=== PATIENT | female | born 1935 | race Caucasian/White ===

== ENCOUNTER 2020-01-30 12:30 | Outpatient (REF) | payer MEDICARE, SELFPAY ==
--- NOTE | 2020-01-30 12:33 | XR_ITS ---
EXAMINATION: SKULL, RIGHT HUMERUS AND FACIAL BONES CLINICAL INFORMATION: Headache. Pain right arm. COMPARISON: None TECHNIQUE: 3 views facial bones FINDINGS: FACIAL BONES: There is normal aeration of paranasal sinuses without mucoperiosteal thickening or air-fluid levels. The bony sinus france are intact. The bony orbits is normal. No acute fracture involving the maxillofacial bones. Visualized mastoid air cells are well-aerated. SKULL 4 VIEWS: Patient is completely edentulous. There is no visible acute fracture or bony abnormality. The diploic space is uniform throughout the skull. There is a soft tissue scalp lesion left parietal region measuring 2.4 cm wide question sebaceous cyst or other soft tissue tumors. RIGHT HUMERUS: There is no visible acute fracture, dislocation or subluxation seen. No bony abnormality. There is a soft tissue abrasion along the lateral mid humerus likely from fall. IMPRESSION: Unremarkable facial bones. Unremarkable skull exam except for soft tissue lesion along the left parietal scalp question sebaceous cyst or other soft tissue lesions. Unremarkable right humerus.
== END 2020-01-30 12:31 | disposition home or self-care (01) ==
LOC: HO.XRAY 12:30
PROVIDERS: PCP Internal Medicine; Visit Provider Internal Medicine
DX: R51.9 Headache, unspecified (principal); M79.601 Pain in right arm; S00.83XA Contusion of other part of head, initial encounter; X58.XXXA Exposure to other specified factors, initial encounter; Y93.9 Activity, unspecified; Y92.9 Unspecified place or not applicable; Y99.9 Unspecified external cause status
CPT/HCPCS: 70140; 70250; 73060

== ENCOUNTER 2020-02-01 11:47 | Emergency (ER) | payer MEDICARE, SELFPAY ==
--- NOTE | 2020-02-01 | XR_ITS ---
EXAMINATION: XR LUMBAR SPINE CLINICAL INFORMATION: Reason for Exam pain COMPARISON: None TECHNIQUE: Frontal lateral and coned-down L5-S1 frontal lateral FINDINGS: Exam limited by soft tissue overlap. Partial compression fracture of L3 and L4, indeterminant age, each vertebral lost approximately one third of its height. Narrowing of intervertebral disc spaces suggest underlying degenerative disc disease. Paravertebral soft tissues are unremarkable. There are radiolucencies, most likely superimposed bowel gas.. No radiographic evidence of osteolytic or osteoblastic lesions. IMPRESSION: Limited exam, soft tissue overlap. Partial compression fracture of L3 and L4, each vertebral lost approximately one third of its height. Indeterminant age. Narrowing of intervertebral disc spaces suggest underlying degenerative disc disease.
--- NOTE | 2020-02-01 | XR_ITS ---
EXAMINATION: XR CHEST CLINICAL INFORMATION: Pleuritic pain. COMPARISON: Chest 12/07/2019. TECHNIQUE: AP and lateral views of the chest are obtained. FINDINGS: The heart is within normal limits in size. There is no congestion or focal consolidation. Hypertrophic degenerative changes of the spine are again noted. IMPRESSION: No acute cardiopulmonary process.
[2020-02-01 11:50] VITALS: BP 157/64; PULSE 90; RESP 16; TEMP 36.8; O2SAT 100; BMI 17.2
[2020-02-01 13:10] VITALS: BP 153/68; PULSE 86; RESP 16; O2SAT 95
--- NOTE | 2020-02-01 13:21 | ED.BACK ---
HPI - Back Pain/Injury General Chief Complaint: Back Pain/Injury <TAN Guerrero - Last Filed: 02/01/20 17:59> Stated Complaint: back pain <TAN Guerrero - Last Filed: 02/01/20 17:59> Time Seen by Provider: 02/01/20 13:08 <TAN Guerrero - Last Filed: 02/01/20 17:59> Source: patient and family <TAN Guerrero - Last Filed: 02/01/20 17:59> Mode of arrival: ambulatory <TAN Guerrero - Last Filed: 02/01/20 17:59> Limitations: language barrier <TAN Guerrero - Last Filed: 02/01/20 17:59> History of Present Illness HPI Narrative: 84 y/o female with history of COPD on 2L NC at baseline, hx SVT, HFpEF, fibromyalgia, OA, anemia presenting with low back pain & mid thoracic back pain on the right side after a fall about 5 days ago. She states pain is worse with inspiration. + cough, occasionally productive. She was evaluated by her PCP at the time of the fall. She has developed progressive weakness per patient and generally not feelin well. Denies fever, chills, N/V, abd pain, urinary symptoms. Family reports history of frequent falls; she ambulates with a walker at home. One of her sleep medications has been removed and she has been better per family. <TAN Guerrero - Last Filed: 02/01/20 17:59> MD elicited complaint: back pain and fall <TAN Guerrero - Last Filed: 02/01/20 17:59> Pertinent past history: recent trauma <TAN Guerrero Last Filed: 02/01/20 17:59> Onset (ago): day(s) (5) <TAN Guerrero - Last Filed: 02/01/20 17:59> Timing: intermittent <TAN Guerrero - Last Filed: 02/01/20 17:59> Severity: moderate <TAN Guerrero - Last Filed: 02/01/20 17:59> Similar Symptoms Previously: No <TAN Guerrero - Last Filed: 02/01/20 17:59> Quality: sharp <TAN Guerrero - Last Filed: 02/01/20 17:59> Location: lumbar spine, thoracic spine and right upper back <TAN Guerrero Last Filed: 02/01/20 17:59> Radiation: none <TAN Guerrero - Last Filed: 02/01/20 17:59> Exacerbating factors: movement and deep breaths <TAN Guerrero - Last Filed: 02/01/20 17:59> Relieving factors: immobilization <TAN Guerrero - Last Filed: 02/01/20 17:59> Context: fall <TAN Guerrero Last Filed: 02/01/20 17:59> Associated symptoms: weakness and fatigue <TAN Guerrero - Last Filed: 02/01/20 17:59> Work related injury: No <TAN Guerrero Last Filed: 02/01/20 17:59> Related Data Home Medications: Home Medications Medication Instructions Recorded Confirmed albuterol sulfate 90 mcg/actuation 2 puff INHALATION Q4-6H PRN 01/29/20 01/31/20 aerosol inhaler cyproheptadine 4 mg tablet 4 mg PO ONCE tab 01/29/20 01/31/20 diltiazem HCl 120 mg tablet 120 mg PO ONCE tab 01/29/20 01/31/20 fluticasone propionate 115 1 puff INHALATION BID g 01/29/20 01/31/20 mcg-salmeterol 21 mcg/actuation HFA inhaler food supplemt, lactose-reduced ea PO .2-3 times daily ml 01/29/20 01/31/20 lorazepam 0.5 mg tablet 0.5 mg PO BEDTIME PRN 01/29/20 01/31/20 nystatin 100,000 unit/mL oral 4 ml PO DAILY ml 01/29/20 01/31/20 suspension omeprazole 20 mg capsule,delayed 20 mg PO BID 01/29/20 01/31/20 release quetiapine 25 mg tablet 25 mg PO BEDTIME 01/29/20 01/31/20 tramadol 50 mg tablet 50 mg PO TID PRN 01/29/20 01/31/20 Previous Rx's Medication Instructions Recorded acetaminophen [Tylenol Arthritis 650 mg PO Q8H PRN #30 tab 02/01/20 Pain] lidocaine [Lidoderm] 1 patch TOPICAL DAILY #15 ea 02/01/20 <TAN Guerrero - Last Filed: 02/01/20 17:59> Allergies/Adverse Reactions: Allergies Allergy/AdvReac Type Severity Reaction Status Date / Time gabapentin [GABAPENTIN] Allergy Mild INCREASED Verified 01/29/20 13:06 BACK PAIN <TAN Guerrero - Last Filed: 02/01/20 17:59> Review of Systems Review of Systems: Constitutional: No Fever, No Chills ENT/Mouth: No sore throat, No Rhinorrhea, No Swallowing Difficulty Eyes: No Eye Pain, No Swelling, No Redness Cardiovascular: postitive intermittent Chest Pain, No SOB, No Orthopnea, No Edema Respiratory: positive Cough, positive Sputum, No Wheezing, No dyspnea Gastrointestinal: No Nausea, No Vomiting, No Diarrhea, No abdominal Pain, No Hematochezia, No Melena Genitourinary: No Dysuria, No Urinary Frequency, No Hematuria Musculoskeletal: No joint pain, No Myalgias, positive back pain Skin: No Skin Lesions, No rash, positive RUE skin tear Neuro: positive generalized Weakness, No Numbness, No Dizziness, No Headache Psych: No Anxiety/Panic, No Depression Heme/Lymph: positive Bruising, No Lymphadenopathy Endocrine: No Polyuria, No Polydipsia All other 10 point ROS are negative. <TAN Guerrero - Last Filed: 02/01/20 17:59> [facility] Past Medical History Attestation statement: The following information was validated with the patient. <TAN Guerrero - Last Filed: 02/01/20 17:59> Medical History: Medical History (HFpEF) heart failure with preserved ejection fraction Anemia Chronic respiratory failure COPD (chronic obstructive pulmonary disease) Dementia Fibromyalgia Multiple falls Osteoarthritis Pulmonary nodule SVT (supraventricular tachycardia) <TAN Guerrero - Last Filed: 02/01/20 17:59> Surgical History: Surgical History History of hysterectomy <TAN Guerrero - Last Filed: 02/01/20 17:59> Family History Family History: Family History Father Cancer Mother CVD (cardiovascular disease) <TAN Guerrero - Last Filed: 02/01/20 17:59> Social History Social History: Social History Alcohol intake: never Smoking Status: Never smoker Use of substances other than those prescribed or required for medical reasons: No Advance Directives: No Advance Directives Information Provided: No <TAN Guerrero - Last Filed: 02/01/20 17:59> Physical Exam Vital Signs and I&O and Narrative: Vital Signs and I&O: Vital Signs Temp 98.2 F 02/01/20 15:26 Pulse 81 02/01/20 15:26 Resp 18 02/01/20 15:26 BP 141/57 H 02/01/20 15:26 Pulse Ox 96 02/01/20 15:26 Intake & Output 01/31/20 02/01/20 02/01/20 18:59 06:59 18:59 Intake Total 1000 / 1000 Balance 1000 / 1000 Weight 39.916 kg Intake: Intake, IV Amoun t 1000 / 1000 0.9 % Sodium C hloride 1,000 ml 1000 / 1000 @ 999 mls/hr I VCONT .Q1H1M [facility] Rx#:[id number] Body Mass Index 17.2 Appearance: Alert. Oriented X3. No acute distress. Frail elderly female Eyes: Pupils equal, round and reactive to light. ENT: Pharynx normal. Neck: Normal inspection. Neck supple. CVS: Normal heart rate and rhythm. Pulses normal. Respiratory: No respiratory distress. Breath sounds coarse throughout Abdomen: Soft and with mild diffuse tenderness. +BS x4 Skin: Skin warm and dry. Normal skin color. Normal skin turgor. RUE skin tea on upper arm Extremities: No lower extremity edema. Neuro: Oriented X 3. generalized weakness, No sensory deficit. <TAN Guerrero - Last Filed: 02/01/20 17:59> Vital Signs and I&O: Vital Signs Temp 98.2 F 02/01/20 15:26 Pulse 81 02/01/20 15:26 Resp 18 02/01/20 15:26 BP 141/57 H 02/01/20 15:26 Pulse Ox 96 02/01/20 15:26 Intake & Output 01/31/20 02/01/20 02/01/20 18:59 06:59 18:59 Intake Total 1000 / 1000 Balance 1000 / 1000 Weight 39.916 kg Intake: Intake, IV Amoun t 1000 / 1000 0.9 % Sodium C hloride 1,000 ml 1000 / 1000 @ 999 mls/hr I VCONT .Q1H1M [facility] Rx#:[id number] Body Mass Index 17.2 <Ishan Vazquez DO - Last Filed: 02/01/20 18:35> Course Course Hospital Course: vital stable on arrival. reports upper right back pain, worse with inspriation, as well as low back pain. admits to generalized weakness after her fall about 5 days ago. XR's pending, hx PNA per family. EKG and troponin pending as well given reports of intermittent chest pain. may require PT evaluation given frequent falls at home. <TAN Guerrero - Last Filed: 02/01/20 17:59> Reevaluation(s) Reevaluation #1: CXR negative. XR lumbar spine shows partial comp fx of L3/L4 - indeterminate age. Will give tylenol and lidoderm right now. pt also asking for a neb. she is wanting to be discharged home, denying PT consult. This was d/w family member as well. they would like to defer for now and f/u with PCP. they have VNA services at home and feel comfortable taking her home. <TAN Guerrero - Last Filed: 02/01/20 17:59> Time: 17:12 <TAN Guerrero - Last Filed: 02/01/20 17:59> Reevaluation #2: Continues to decline PT. Wishes to go home. She is stable for d/c home. <TAN Guerrero - Last Filed: 02/01/20 17:59> MDM - Back Pain/Injury Differential Diagnosis Differential diagnosis: Likely lumbar radiculopathy, sciatica, strain of lumbar region, pyelonephritis and thoracic back pain <TAN Guerrero - Last Filed: 02/01/20 17:59> Medical Records Attestation: I reviewed the patient's medical records. <TAN Guerrero - Last Filed: 02/01/20 17:59> Lab Data Attestation: I reviewed the patient's lab results. <TAN Guerrero - Last Filed: 02/01/20 17:59> Result diagrams: : 02/01/20 14:41 02/01/20 14:40 <TAN Guerrero - Last Filed: 02/01/20 17:59> Labs: Lab Results 02/01/20 02/01/20 02/01/20 Range/Units 14:40 14:41 14:41 WBC (4.8-10.8) X10*3/uL RBC (4.20-5.50) X10*6/uL Hgb (12.0-16.0) g/dl Hct (37-47) % MCV (80-98) fL MCH (27.0-33.0) pg MCHC (31.0-35.0) g/dl RDW (11.0-16.0) % Plt Count (160-400) X10*3/uL MPV (9.4-12.3) fL Immature Gran % (Auto) (0.0-0.4) % Neut % (Auto) (45-73) % Lymph % (Auto) (20-40) % [place] % (Auto) (2-11) % Eos % (Auto) (0-4) % Baso % (Auto) (0-2) % Neut # (Auto) (2.0-8.3) X10*3/uL Lymph # (Auto) (1.2-4.9) X10*3/uL [place] # (Auto) (0.1-1.2) X10*3/uL Eos # (Auto) (0.0-0.4) X10*3/uL Baso # (Auto) (0.0-0.2) X10*3/uL Abs Immat Gran (auto) (0.00-0.03) X10*3/uL Absolute Nucleated RBC (0.0-0.012) X10*3/uL Nucleated RBC % (auto) (0.0-0.2) /100WBC Smear Tech's Comments Sodium 140 (135-145) mmol/L Potassium 4.2 (3.3-5.1) mmol/l Chloride 103 (96-108) mmol/L Carbon Dioxide 27 (22-29) mmol/L Anion Gap 14 (12-20) BUN 13 (9-16) mg/dL Creatinine 0.73 (0.5-1.4) mg/dL Estim Creat Clear Calc 36.1 Estimated GFR > 60 Random Glucose 133 H (60-115) mg/dL Calcium 8.7 (8.4-10.2) mg/dL Total Bilirubin 0.3 (0.0-1.0) mg/dL Direct Bilirubin 0.2 (0.0-0.5) mg/dL AST 23 (5-31) U/L ALT 21 (0-31) U/L Alkaline Phosphatase 106 (39-117) U/L Troponin I High Sens 4.9 (<3.5-17.0) ng/L B-Natriuretic Peptide 53 (<100) pg/mL Total Protein 6.2 L (6.5-8.0) g/dL Albumin 3.6 (3.5-5.0) g/dL 02/01/20 Range/Units 14:41 WBC 5.0 (4.8-10.8) X10*3/uL RBC 2.82 L (4.20-5.50) X10*6/uL Hgb 9.2 L (12.0-16.0) g/dl Hct 29.5 L (37-47) % MCV 104.6 H (80-98) fL MCH 32.6 (27.0-33.0) pg MCHC 31.2 (31.0-35.0) g/dl RDW 15.1 (11.0-16.0) % Plt Count 154 L (160-400) X10*3/uL MPV 9.7 (9.4-12.3) fL Immature Gran % (Auto) 2.0 H (0.0-0.4) % Neut % (Auto) 46.2 (45-73) % Lymph % (Auto) 24.3 (20-40) % [place] % (Auto) 27.1 H (2-11) % Eos % (Auto) 0.2 (0-4) % Baso % (Auto) 0.2 (0-2) % Neut # (Auto) 2.3 (2.0-8.3) X10*3/uL Lymph # (Auto) 1.2 (1.2-4.9) X10*3/uL [place] # (Auto) 1.4 H (0.1-1.2) X10*3/uL Eos # (Auto) 0.0 (0.0-0.4) X10*3/uL Baso # (Auto) 0.0 (0.0-0.2) X10*3/uL Abs Immat Gran (auto) 0.10 H (0.00-0.03) X10*3/uL Absolute Nucleated RBC 0.000 (0.0-0.012) X10*3/uL Nucleated RBC % (auto) 0.0 (0.0-0.2) /100WBC Smear Tech's Comments VERIFIED Sodium (135-145) mmol/L Potassium (3.3-5.1) mmol/l Chloride (96-108) mmol/L Carbon Dioxide (22-29) mmol/L Anion Gap (12-20) BUN (9-16) mg/dL Creatinine (0.5-1.4) mg/dL Estim Creat Clear Calc Estimated GFR Random Glucose (60-115) mg/dL Calcium (8.4-10.2) mg/dL Total Bilirubin (0.0-1.0) mg/dL Direct Bilirubin (0.0-0.5) mg/dL AST (5-31) U/L ALT (0-31) U/L Alkaline Phosphatase (39-117) U/L Troponin I High Sens (<3.5-17.0) ng/L B-Natriuretic Peptide (<100) pg/mL Total Protein (6.5-8.0) g/dL Albumin (3.5-5.0) g/dL <TAN Guerrero - Last Filed: 02/01/20 17:59> Lab Results 02/01/20 02/01/20 02/01/20 Range/Units 14:40 14:41 14:41 WBC (4.8-10.8) X10*3/uL RBC (4.20-5.50) X10*6/uL Hgb (12.0-16.0) g/dl Hct (37-47) % MCV (80-98) fL MCH (27.0-33.0) pg MCHC (31.0-35.0) g/dl RDW (11.0-16.0) % Plt Count (160-400) X10*3/uL MPV (9.4-12.3) fL Immature Gran % (Auto) (0.0-0.4) % Neut % (Auto) (45-73) % Lymph % (Auto) (20-40) % [place] % (Auto) (2-11) % Eos % (Auto) (0-4) % Baso % (Auto) (0-2) % Neut # (Auto) (2.0-8.3) X10*3/uL Lymph # (Auto) (1.2-4.9) X10*3/uL [place] # (Auto) (0.1-1.2) X10*3/uL Eos # (Auto) (0.0-0.4) X10*3/uL Baso # (Auto) (0.0-0.2) X10*3/uL Abs Immat Gran (auto) (0.00-0.03) X10*3/uL Absolute Nucleated RBC (0.0-0.012) X10*3/uL Nucleated RBC % (auto) (0.0-0.2) /100WBC Smear Tech's Comments Sodium 140 (135-145) mmol/L Potassium 4.2 (3.3-5.1) mmol/l Chloride 103 (96-108) mmol/L Carbon Dioxide 27 (22-29) mmol/L Anion Gap 14 (12-20) BUN 13 (9-16) mg/dL Creatinine 0.73 (0.5-1.4) mg/dL Estim Creat Clear Calc 36.1 Estimated GFR > 60 Random Glucose 133 H (60-115) mg/dL Calcium 8.7 (8.4-10.2) mg/dL Total Bilirubin 0.3 (0.0-1.0) mg/dL Direct Bilirubin 0.2 (0.0-0.5) mg/dL AST 23 (5-31) U/L ALT 21 (0-31) U/L Alkaline Phosphatase 106 (39-117) U/L Troponin I High Sens 4.9 (<3.5-17.0) ng/L B-Natriuretic Peptide 53 (<100) pg/mL Total Protein 6.2 L (6.5-8.0) g/dL Albumin 3.6 (3.5-5.0) g/dL 02/01/20 Range/Units 14:41 WBC 5.0 (4.8-10.8) X10*3/uL RBC 2.82 L (4.20-5.50) X10*6/uL Hgb 9.2 L (12.0-16.0) g/dl Hct 29.5 L (37-47) % MCV 104.6 H (80-98) fL MCH 32.6 (27.0-33.0) pg MCHC 31.2 (31.0-35.0) g/dl RDW 15.1 (11.0-16.0) % Plt Count 154 L (160-400) X10*3/uL MPV 9.7 (9.4-12.3) fL Immature Gran % (Auto) 2.0 H (0.0-0.4) % Neut % (Auto) 46.2 (45-73) % Lymph % (Auto) 24.3 (20-40) % [place] % (Auto) 27.1 H (2-11) % Eos % (Auto) 0.2 (0-4) % Baso % (Auto) 0.2 (0-2) % Neut # (Auto) 2.3 (2.0-8.3) X10*3/uL Lymph # (Auto) 1.2 (1.2-4.9) X10*3/uL [place] # (Auto) 1.4 H (0.1-1.2) X10*3/uL Eos # (Auto) 0.0 (0.0-0.4) X10*3/uL Baso # (Auto) 0.0 (0.0-0.2) X10*3/uL Abs Immat Gran (auto) 0.10 H (0.00-0.03) X10*3/uL Absolute Nucleated RBC 0.000 (0.0-0.012) X10*3/uL Nucleated RBC % (auto) 0.0 (0.0-0.2) /100WBC Smear Tech's Comments VERIFIED Sodium (135-145) mmol/L Potassium (3.3-5.1) mmol/l Chloride (96-108) mmol/L Carbon Dioxide (22-29) mmol/L Anion Gap (12-20) BUN (9-16) mg/dL Creatinine (0.5-1.4) mg/dL Estim Creat Clear Calc Estimated GFR Random Glucose (60-115) mg/dL Calcium (8.4-10.2) mg/dL Total Bilirubin (0.0-1.0) mg/dL Direct Bilirubin (0.0-0.5) mg/dL AST (5-31) U/L ALT (0-31) U/L Alkaline Phosphatase (39-117) U/L Troponin I High Sens (<3.5-17.0) ng/L B-Natriuretic Peptide (<100) pg/mL Total Protein (6.5-8.0) g/dL Albumin (3.5-5.0) g/dL <Ishan Vazquez DO - Last Filed: 02/01/20 18:35> Imaging Data Lumbar x-ray : Radiologist's impression: Partial compression fracture of L3 and L4, each vertebral lost approximately one third of its height. Indeterminant age. <TAN Guerrero - Last Filed: 02/01/20 17:59> Discharge Plan Discharge Clinical Impression: Multiple falls Compression fracture of L3 vertebra Qualifiers: Encounter type: initial encounter Qualified Code(s): S32.030A - Wedge compression fracture of third lumbar vertebra, initial encounter for closed fracture Compression fracture of L4 vertebra Qualifiers: Encounter type: initial encounter Qualified Code(s): S32.040A - Wedge compression fracture of fourth lumbar vertebra, initial encounter for closed fracture <TAN Guerrero - Last Filed: 02/01/20 17:59> Patient Disposition: Home, Self-Care <TAN Guerrero - Last Filed: 02/01/20 17:59> Instructions: Vertebral Compression Fracture (ED), Fall Prevention for Older Adults (ED) <TAN Guerrero - Last Filed: 02/01/20 17:59> Additional Instructions: It was recommended that you be evaluated by Physical Therapy team for possible placement to a short term rehab facility, however you refused. Follow up with your Primary Care Doctor this week. Come back to the ER if you develop shortness of breath or chest pain, numbness or tingling in your legs, or inability to walk. <TAN Guerrero - Last Filed: 02/01/20 17:59> Prescriptions: New lidocaine [Lidoderm] 5 % adhesive patch,medicated 1 patch topical DAILY Qty: 15 RF: 0 acetaminophen [Tylenol Arthritis Pain] 650 mg tablet extended release 650 mg PO Q8H PRN (Reason: pain) Qty: 30 RF: 0 Continued flu vacc [id number] 6mos up(PF) 60 mcg (15 mcg x 4)/0.5 mL syringe 0.5 ml IM ONCE Qty: 0.5 RF: 0 Flublok Quad [id number] (PF) 180 mcg (45 mcg x 4)/0.5 mL syringe 0.5 ml IM ONCE Qty: 0.5 RF: 0 quetiapine 25 mg tablet 25 mg PO BEDTIME RF: 0 Advair HFA 115-21 mcg/actuation HFA aerosol inhaler 1 puff inhalation BID RF: 0 Ensure Liquid PO .2-3 times daily RF: 0 cyproheptadine 4 mg tablet 4 mg PO ONCE RF: 0 lorazepam 0.5 mg tablet 0.5 mg PO BEDTIME PRNRF: 0 nystatin 100,000 unit/mL suspension 4 ml PO DAILY RF: 0 tramadol 50 mg tablet 50 mg PO TID PRNRF: 0 diltiazem HCl 120 mg tablet 120 mg PO ONCE RF: 0 albuterol sulfate [ProAir HFA] 90 mcg/actuation HFA aerosol inhaler 2 puff inhalation Q4-6H PRNRF: 0 omeprazole 20 mg capsule,delayed release(DR/EC) 20 mg PO BID RF: 0 <TAN Guerrero - Last Filed: 02/01/20 17:59> Interventions: ED Discharge Assessment Last Done: 02/01/20 17:32 <TAN Guerrero - Last Filed: 02/01/20 17:59> Discharge Date/Time: 02/01/20 18:18 <TAN Guerrero - Last Filed: 02/01/20 17:59> Print Language: Martiniquais <TAN Guerrero - Last Filed: 02/01/20 17:59>
[2020-02-01 14:47] LABS: Basophils Percent Auto 0.2 % (0-2); Eosinophils Percent Auto 0.2 % (0-4); Hematocrit 29.5 % (37-47); Hemoglobin 9.2 g/dl (12.0-16.0); Lymphocytes Absolute Auto 1.2 X10*3/uL (1.2-4.9); Lymphocytes Percent Auto 24.3 % (20-40); MANUAL DIFF FLAG SCAN; Mean Corpuscular HGB Conc 31.2 g/dl (31.0-35.0); Mean Corpuscular Hemoglobin 32.6 pg (27.0-33.0); Mean Corpuscular Volume 104.6 fL (80-98); Mean Platelet Volume 9.7 fL (9.4-12.3); Monocytes Absolute Auto 1.4 X10*3/uL (0.1-1.2); Monocytes Percent Auto 27.1 % (2-11); Neutrophils Absolute Auto 2.3 X10*3/uL (2.0-8.3); Neutrophils Percent Auto 46.2 % (45-73); Platelet Count 154 X10*3/uL (160-400); Red Blood Count 2.82 X10*6/uL (4.20-5.50); Red Cell Distribution Width 15.1 % (11.0-16.0); SCAN SMEAR FLAG 1
[2020-02-01] MEDS: 0.9 % Sodium Chloride 1,000 ML 999 ML IVCONT (14:48)
[2020-02-01 15:08] LABS: Anion Gap 14 (12-20); Blood Urea Nitrogen 13 mg/dL (9-16); Calcium 8.7 mg/dL (8.4-10.2); Carbon Dioxide 27 mmol/L (22-29); Chloride 103 mmol/L (96-108); Creatinine Clr Calc Pharmacy 36.1; Estimated Glomerular Filt Rate > 60; Glucose Random 133 mg/dL (60-115); Potassium 4.2 mmol/l (3.3-5.1); Sodium 140 mmol/L (135-145)
[2020-02-01 15:10] LABS: Alanine Aminotransferase 21 U/L (0-31); Albumin Level 3.6 g/dL (3.5-5.0); Alkaline Phosphatase 106 U/L (39-117); Aspartate Amino Transferase 23 U/L (5-31); Bilirubin Direct 0.2 mg/dL (0.0-0.5); Bilirubin Total 0.3 mg/dL (0.0-1.0); Total Protein 6.2 g/dL (6.5-8.0)
[2020-02-01 15:15] LABS: SLIDE REVIEW VERIFIED
[2020-02-01 15:16] LABS: B Type Natriuretic Peptide 53 pg/mL (<100); Troponin-I High Sensitivity 4.9 ng/L (<3.5-17.0)
[2020-02-01 15:26] VITALS: BP 141/57; PULSE 81; RESP 18; TEMP 36.8; O2SAT 96
[2020-02-01] MEDS: Albuterol/Iprat 2.5/0.5MG 3 ML AMPUL.NEB INHALE (16:49)
== END 2020-02-01 18:18 | disposition home or self-care (01) ==
PROVIDERS: Physician Assistant; Emergency Provider Emergency Medicine; PCP Internal Medicine
DX: S32.030A Wedge compression fracture of third lumbar vertebra, initial encounter for closed fracture (principal); S32.040A Wedge compression fracture of fourth lumbar vertebra, initial encounter for closed fracture; W19.XXXA Unspecified fall, initial encounter; I50.9 Heart failure, unspecified; Z91.81 History of falling; Y93.9 Activity, unspecified; Y92.9 Unspecified place or not applicable; Y99.9 Unspecified external cause status; Z79.899 Other long term (current) drug therapy
CPT/HCPCS: 36415; 71046; 72100; 80048; 80076; 83880; 84484; 85025; 96360; 99284

== ENCOUNTER 2020-02-05 04:44 | Outpatient (REF) | payer MEDICARE, SELFPAY | END 2020-02-05 04:45 | disposition home or self-care (01) | LOC: HO.LHD 04:44 | PROVIDERS: Visit Provider Internal Medicine | DX: D64.9 Anemia, unspecified (principal) ==

== ENCOUNTER 2020-02-06 01:28 | Outpatient (REF) | payer MEDICARE, SELFPAY ==
[2020-02-06 11:17] LABS: Hematocrit 29.5 % (37-47); Hemoglobin 9.3 g/dl (12.0-16.0); Mean Corpuscular HGB Conc 31.5 g/dl (31.0-35.0); Mean Corpuscular Hemoglobin 32.7 pg (27.0-33.0); Mean Corpuscular Volume 103.9 fL (80-98); Mean Platelet Volume 9.8 fL (9.4-12.3); Platelet Count 220 X10*3/uL (160-400); Red Blood Count 2.84 X10*6/uL (4.20-5.50); Red Cell Distribution Width 15.4 % (11.0-16.0); White Blood Count 6.7 X10*3/uL (4.8-10.8)
== END 2020-02-06 01:29 | disposition home or self-care (01) ==
LOC: HO.LHD 01:28
PROVIDERS: Visit Provider Internal Medicine
DX: D64.9 Anemia, unspecified (principal)
CPT/HCPCS: 36415; 85027

== ENCOUNTER 2020-03-05 16:09 | Emergency (ER) | payer MEDICARE, SELFPAY ==
[2020-03-05 16:51] VITALS: BP 130/83; BP 135/61; PULSE 78; PULSE 80; RESP 18; TEMP 36; O2SAT 98; O2SAT 99; BMI 17.3
--- NOTE | 2020-03-05 17:00 | XR_ITS ---
EXAMINATION: XR RIBS, LEFT CLINICAL INFORMATION: Fall. Pain. COMPARISON: CT chest 12/07/2019. Chest x-ray 12/07/2019 TECHNIQUE: Frontal view of chest 3 views of the left ribs were obtained. FINDINGS: There is hyperexpansion of lungs. There is no acute abnormality the chest. No focal consolidation. Small peripheral calcified granuloma left upper lobe. No pulmonary vascular congestion and no pleural effusion. There is no pneumothorax. Cardiac and mediastinal contours are unchanged. There are vascular calcifications of aorta. Multilevel degenerative spondylosis of the spine. There is no displaced left rib fracture. There is a mildly displaced transverse fracture of the midshaft of left clavicle. XR/XR ribs LT min 3V w CXR1V IMPRESSION: 1. Fracture midshaft left clavicle. 2. No displaced left rib fracture.
--- NOTE | 2020-03-05 17:00 | XR_ITS ---
EXAMINATION: XR SHOULDER, LEFT CLINICAL INFORMATION: Status post fall COMPARISON: None TECHNIQUE: AP external rotation, Grashey, and scapular Y views of the left shoulder. FINDINGS: There is a nondisplaced mid to distal left clavicular fracture with mild inferior angulation of the distal bone. The scapula and humerus are intact. There is narrowing of the acromio clavicular and glenohumeral joint spaces with associated hypertrophic changes. Chronic interstitial changes in the visualized portion of the lungs. There is a calcified granuloma in the left upper lobe. XR/XR shoulder LT min 2V IMPRESSION: Nondisplaced left midclavicular fracture with minimal inferior angulation of the distal bone.
--- NOTE | 2020-03-05 17:01 | ED_ITS ---
HPI - Fall General Chief Complaint: Fall Stated Complaint: R SHOULDER PAIN Time Seen by Provider: 03/05/20 16:42 Source: family Mode of arrival: EMS Limitations: other ( dementia) History of Present Illness HPI Narrative: patient dementia COPD home on home oxygen 2 L 24 hours was trying to get up from the bed to the commode without any help lost balance and fell on the left side complaining of pain in the left shoulder and left upper back no head injury no loss of consciousness patient's son-in-law was at home who help for patient was able to ambulate after the fall ,no seizure patient has similar history of falls in the past Related Data Home Medications Medication Instructions Recorded Confirmed albuterol sulfate 90 mcg/actuation 2 puff INHALATION Q4-6H PRN 01/29/20 01/31/20 aerosol inhaler cyproheptadine 4 mg tablet 4 mg PO ONCE tab 01/29/20 01/31/20 food supplemt, lactose-reduced ea PO .2-3 times daily ml 01/29/20 01/31/20 lorazepam 0.5 mg tablet 0.5 mg PO BEDTIME PRN 01/29/20 01/31/20 nystatin 100,000 unit/mL oral 4 ml PO DAILY ml 01/29/20 01/31/20 suspension omeprazole 20 mg capsule,delayed 20 mg PO BID 01/29/20 01/31/20 release quetiapine 25 mg tablet 25 mg PO BEDTIME 01/29/20 01/31/20 tramadol 50 mg tablet 50 mg PO TID PRN 01/29/20 01/31/20 Previous Rx's Medication Instructions Recorded acetaminophen [Tylenol Arthritis 650 mg PO Q8H PRN #30 tab 02/01/20 Pain] lidocaine [Lidoderm] 1 patch TOPICAL DAILY #15 ea 02/01/20 fluticasone propionate 115 1 puff INHALATION BID 30 Days #12 g 02/03/20 mcg-salmeterol 21 mcg/actuation HFA inhaler diltiazem HCl 120 mg 120 mg PO DAILY #30 cap 02/12/20 capsule,extended release 24 hr Allergies Allergy/AdvReac Type Severity Reaction Status Date / Time gabapentin [GABAPENTIN] Allergy Mild INCREASED Verified 01/29/20 13:06 BACK PAIN Review of Systems Review of Systems: REVIEW OF SYSTEMS: Pertinent positives and negatives are stated above in the history. GEN: no fevers, chills, fatigue HEENT: no nasal congestion, sore throat, ear pain NEURO: no headache, dizziness, focal weakness PULM: no cough, shortness of breath CV: no chest pain, palpitations, LE edema ABD: no abdominal pain, nausea, vomiting, diarrhea : no dysuria, urgency, frequency SKIN: no rash ROS otherwise negative x 10 PMFSH Past Medical History Medical History (HFpEF) heart failure with preserved ejection fraction Anemia Chronic respiratory failure COPD (chronic obstructive pulmonary disease) Dementia Fibromyalgia Multiple falls Osteoarthritis Pulmonary nodule SVT (supraventricular tachycardia) Surgical History History of hysterectomy Family History Family History Father Cancer Mother CVD (cardiovascular disease) Social History Social History Alcohol intake: never Smoking Status: Never smoker Advance Directives: No Advance Directives Information Provided: No Advance Directives Date on File: 09/11/08 Physical Exam Vital Signs: Vital Signs: Last Vital Signs Temp 96.8 F 03/05/20 16:51 Pulse 80 03/05/20 16:51 Resp 18 03/05/20 16:51 BP 135/61 03/05/20 16:51 Pulse Ox 98 03/05/20 16:51 Body Mass Index 17.3 Appearance: Alert. Oriented X2. No acute distress. Eyes: Pupils equal, round and reactive to light. ENT: Pharynx normal. Neck: Normal inspection. Neck supple. CVS: Normal heart rate and rhythm. Pulses normal. Respiratory: No respiratory distress. Breath sounds normal. tender left upper r ibs no skin change Abdomen: Soft and nontender. Skin: Skin warm and dry. Normal skin color. Normal skin turgor. Extremities: No lower extremity edema. Good range of movement of lower extremity. tenderness left upper end humerus and clavicle no deformity other joints are normal Neuro: Oriented X 2. No motor deficit. No sensory deficit. MDM - Fall MDM Narrative Medical decision making narrative: 84 years old elderly patient came after mechanical fall x-ray showed left clavicle fracture minimal displaced will give her a sling advised to follow-up with PCP Discharge Plan Discharge Clinical Impression: Clavicle fracture Qualifiers: Encounter type: initial encounter Clavicle location: shaft Fracture type: closed Fracture alignment: nondisplaced Laterality: left Qualified Code(s): S42.025A - Nondisplaced fracture of shaft of left clavicle, initial encounter for closed fracture Fall Qualifiers: Encounter type: initial encounter Qualified Code(s): W19.XXXA - Unspecified fall, initial encounter Patient Disposition: Home, Self-Care Instructions: Clavicle Fracture (ED), Fall Prevention for Older Adults (ED) Additional Instructions: care as advised , wear the sling for support continue pain medication tramadol Prescriptions: No Action fluticasone propion-salmeterol [Advair HFA] 115-21 mcg/actuation HFA aerosol inhaler 1 puff inhalation BID 30 Days Qty: 12 RF: 3 diltiazem HCl 120 mg capsule,extended release 24hr 120 mg PO DAILY Qty: 30 RF: 0 lidocaine [Lidoderm] 5 % adhesive patch,medicated 1 patch topical DAILY Qty: 15 RF: 0 acetaminophen [Tylenol Arthritis Pain] 650 mg tablet extended release 650 mg PO Q8H PRN (Reason: pain) Qty: 30 RF: 0 flu vacc [id number] 6mos up(PF) 60 mcg (15 mcg x 4)/0.5 mL syringe 0.5 ml IM ONCE Qty: 0.5 RF: 0 Flublok Quad [id number] (PF) 180 mcg (45 mcg x 4)/0.5 mL syringe 0.5 ml IM ONCE Qty: 0.5 RF: 0 quetiapine 25 mg tablet 25 mg PO BEDTIME RF: 0 Ensure Liquid PO .2-3 times daily RF: 0 cyproheptadine 4 mg tablet 4 mg PO ONCE RF: 0 lorazepam 0.5 mg tablet 0.5 mg PO BEDTIME PRNRF: 0 nystatin 100,000 unit/mL suspension 4 ml PO DAILY RF: 0 tramadol 50 mg tablet 50 mg PO TID PRNRF: 0 albuterol sulfate [ProAir HFA] 90 mcg/actuation HFA aerosol inhaler 2 puff inhalation Q4-6H PRNRF: 0 omeprazole 20 mg capsule,delayed release(DR/EC) 20 mg PO BID RF: 0
[2020-03-05] MEDS: oxyCODONE HCl Immed Release 5 MG TABLET PO (18:51)
== END 2020-03-05 19:27 | disposition home or self-care (01) ==
PROVIDERS: Emergency Provider Internal Medicine
DX: S42.025A Nondisplaced fracture of shaft of left clavicle, initial encounter for closed fracture (principal); M25.511 Pain in right shoulder; F03.90 Unspecified dementia, unspecified severity, without behavioral disturbance, psychotic disturbance, mood disturbance, and anxiety; W01.0XXA Fall on same level from slipping, tripping and stumbling without subsequent striking against object, initial encounter; Y93.01 Activity, walking, marching and hiking; Y92.009 Unspecified place in unspecified non-institutional (private) residence as the place of occurrence of the external cause; Z79.899 Other long term (current) drug therapy; Z99.81 Dependence on supplemental oxygen
CPT/HCPCS: 71101; 73030; 99283

== ENCOUNTER 2020-03-11 05:13 | Outpatient (REF) | payer MEDICARE, SELFPAY ==
[2020-03-11 10:12] LABS: Hematocrit 32.8 % (37-47); Hemoglobin 10.4 g/dl (12.0-16.0); Mean Corpuscular HGB Conc 31.7 g/dl (31.0-35.0); Mean Corpuscular Hemoglobin 33.5 pg (27.0-33.0); Mean Corpuscular Volume 105.8 fL (80-98); Mean Platelet Volume 9.5 fL (9.4-12.3); Platelet Count 298 X10*3/uL (160-400); White Blood Count 4.7 X10*3/uL (4.8-10.8)
== END 2020-03-11 05:14 | disposition home or self-care (01) ==
LOC: HO.LHD 05:13
PROVIDERS: Visit Provider Internal Medicine
DX: D64.9 Anemia, unspecified (principal)
CPT/HCPCS: 36415; 85027

== ENCOUNTER 2020-03-23 18:18 | Emergency (ER) | payer MEDICARE, SELFPAY ==
[2020-03-23] VITALS (7 sets, daily range): BP systolic 136–174; BP diastolic 41–87; PULSE 90–124; RESP 14–28; TEMP 36.5; O2SAT 3–97; BMI 16.1
--- NOTE | 2020-03-23 18:34 | ED_ITS ---
History of Present Illness General Chief Complaint: Epistaxis Stated Complaint: EPISTAXIS Time Seen by Provider: 03/23/20 18:33 Source: patient, family and EMS Mode of arrival: EMS Limitations: altered mental status (dementia) History of Present Illness HPI Narrative: daughter denies ASA or AC therapy Location: Yes right nares Onset/current episode: Yes hour(s) (started after 5pm but last night had bleedin g that resolved from R taylor) Duration: Yes constant Pertinent past history: Yes history of previous nose bleed Context: Yes history of previous nose bleed Treatment prior to arrival: Yes nose pinching and Yes head leaning forward Related Data Home Medications Medication Instructions Recorded Confirmed albuterol sulfate 90 mcg/actuation 2 puff INHALATION Q4-6H PRN 01/29/20 01/31/20 aerosol inhaler food supplemt, lactose-reduced ea PO .2-3 times daily ml 01/29/20 01/31/20 lorazepam 0.5 mg tablet 0.5 mg PO BEDTIME PRN 01/29/20 01/31/20 nystatin 100,000 unit/mL oral 4 ml PO DAILY ml 01/29/20 01/31/20 suspension omeprazole 20 mg capsule,delayed 20 mg PO BID 01/29/20 01/31/20 release quetiapine 25 mg tablet 25 mg PO BEDTIME 01/29/20 01/31/20 Previous Rx's Medication Instructions Recorded acetaminophen [Tylenol Arthritis 650 mg PO Q8H PRN #30 tab 02/01/20 Pain] lidocaine [Lidoderm] 1 patch TOPICAL DAILY #15 ea 02/01/20 fluticasone propionate 115 1 puff INHALATION BID 30 Days #12 g 02/03/20 mcg-salmeterol 21 mcg/actuation HFA inhaler diltiazem HCl 120 mg 120 mg PO DAILY #30 cap 03/12/20 capsule,extended release 24 hr tramadol 50 mg tablet 50 mg PO TID PRN 30 Days #90 tab 03/15/20 cyproheptadine 2 mg/5 mL oral syrup 2 mg PO BID #300 ml 03/17/20 Allergies Allergy/AdvReac Type Severity Reaction Status Date / Time gabapentin [GABAPENTIN] Allergy Mild INCREASED Verified 01/29/20 13:06 BACK PAIN Review of Systems Review of Systems: ROS unable to be obtained due to dementia and poor comprehension PMFSH Past Medical History Attestation statement: The following information was validated with the patient. Medical History (HFpEF) heart failure with preserved ejection fraction Anemia Chronic respiratory failure Closed left clavicular fracture COPD (chronic obstructive pulmonary disease) Dementia Fibromyalgia Multiple falls Osteoarthritis Pulmonary nodule SVT (supraventricular tachycardia) Surgical History History of hysterectomy Family History Family History Father Cancer Mother CVD (cardiovascular disease) Social History Social History Alcohol intake: never Smoking Status: Never smoker Advance Directives: Yes Advance Directives on File: Yes Advance Directives Date on File: 09/11/08 Physical Exam Vital Signs: Vital Signs: Last Vital Signs Temp 97.7 F 03/23/20 19:54 Pulse 115 H 03/24/20 00:00 Resp 18 03/24/20 00:00 BP 141/93 H 03/24/20 00:00 Pulse Ox 94 03/24/20 00:00 Body Mass Index 16.1 Appearance: Alert. Oriented X2. Anxious, mild acute distress. Eyes: Pupils equal, round and reactive to light. ENT: bleeding with clots noted in pharynx, brisk brb from R nares Neck: Normal inspection. Neck supple. CVS: Normal heart rate and rhythm. Pulses normal. Respiratory: No respiratory distress. Breath sounds normal. Abdomen: Soft and nontender. Skin: Skin warm and dry. Normal skin color. Normal skin turgor. Extremities: No lower extremity edema. No calf ttp Neuro: Oriented X 2. No motor deficit. No sensory deficit. Course Course Course Narrative: bleeding greatly improved, will give IV ativan for discomfort and allow her to sleep, plan is to DC in AM if she remains stable - hard for daughter to care for her overnight tonight, concern she may pull her packing for now bleeding has stopped bleeding has stopped, BP improving patient agitated cannot sleep c/o pain to family, repeat IV ativan and fentanyl for comfort ordered, patient trying to pull at her nasal packing given agitation will try olanzapine 2.5mg for rest, she is still trying to pull out her packing patient is very agitated from the packing and in pain, will not take PO medications family aware this could be detrimental but at this time given her agitation likely from pain will provide supportive care the patient is DNR/DNI repeat pain medications ordered, seems to be relaxed with dilaudid now, was rocking back and forth previously crying, given repeat xopenex as well patient finally asleep, will need case management for likely placement in AM Procedures Epistaxis Control Time Out Performed: Yes Nostril: Yes right Nose prepped with: Yes oxymetazoline and Yes other (tranexamic acid) Direct inspection: Yes unable to visualize Clots removed by: Yes suction Epistaxis treatment: Yes nasal tampon Results of treatment: Yes treatment well tolerated Complications: Yes none MDM - Epistaxis MDM Narrative Medical decision making narrative: 84 yo female without ASA or AC therapy - here with atraumatic R nares bleeding that is moderate in nature with bleeding in pharynx at this time applied nasal tong with afrin and tranexamic acid but the patient kept pulling at the tongs due to her dementia, given brisk bleeding applied 7.5cm packing with tranexamic acid and afrin - will obtain labs and likely observe until the AM Lab Data Result diagrams: 03/23/20 23:17 03/23/20 18:43 Labs: Lab Results 03/23/20 03/23/20 03/23/20 Range/Units 18:43 18:43 18:43 WBC 7.2 (4.8-10.8) X10*3/uL RBC 2.90 L (4.20-5.50) X10*6/uL Hgb 9.9 L (12.0-16.0) g/dl Hct 30.7 L (37-47) % MCV 105.9 H (80-98) fL MCH 34.1 H (27.0-33.0) pg MCHC 32.2 (31.0-35.0) g/dl RDW 12.8 (11.0-16.0) % Plt Count 162 D (160-400) X10*3/uL MPV 9.3 L (9.4-12.3) fL Immature Gran % (Auto) 0.4 (0.0-0.4) % Neut % (Auto) 38.3 L (45-73) % Lymph % (Auto) 33.5 (20-40) % [place] % (Auto) 27.5 H (2-11) % Eos % (Auto) 0.3 (0-4) % Baso % (Auto) 0.0 (0-2) % Lymph # (Auto) 2.4 (1.2-4.9) X10*3/uL [place] # (Auto) 2.0 H (0.1-1.2) X10*3/uL Eos # (Auto) 0.0 (0.0-0.4) X10*3/uL Baso # (Auto) 0.0 (0.0-0.2) X10*3/uL Abs Immat Gran (auto) 0.03 (0.00-0.03) X10*3/uL Absolute Neuts (auto) 2.8 (2.0-8.3) X10*3/uL Absolute Nucleated RBC 0.000 (0.0-0.012) X10*3/uL Nucleated RBC % (auto) 0.0 (0.0-0.2) /100WBC Smear Tech's Comments VERIFIED PT (10.8-13.0) SEC INR (0.9-1.1) APTT (24.1-38.0) SEC VBG pH (7.32-7.43) VBG pCO2 mmhg VBG pO2 mmhg VBG HCO3 mmol/L VBG O2 Saturation % VBG Base Excess mmol/L Sodium 139 (135-145) mmol/L Potassium 4.8 (3.3-5.1) mmol/l Chloride 102 (96-108) mmol/L Carbon Dioxide 27 (22-29) mmol/L Anion Gap 15 (12-20) BUN 22 H D (9-16) mg/dL Creatinine 0.71 (0.5-1.4) mg/dL Estim Creat Clear Calc 33.7 Estimated GFR > 60 Random Glucose 96 (60-115) mg/dL Calcium 9.1 (8.4-10.2) mg/dL Blood Type A Positive Antibody Screen NEGATIVE 03/23/20 03/23/20 03/23/20 Range/Units 18:44 23:17 23:21 WBC 12.0 H (4.8-10.8) X10*3/uL RBC 2.79 L (4.20-5.50) X10*6/uL Hgb 9.5 L (12.0-16.0) g/dl Hct 29.6 L (37-47) % MCV 106.1 H (80-98) fL MCH 34.1 H (27.0-33.0) pg MCHC 32.1 (31.0-35.0) g/dl RDW 12.8 (11.0-16.0) % Plt Count 194 (160-400) X10*3/uL MPV 9.5 (9.4-12.3) fL Immature Gran % (Auto) (0.0-0.4) % Neut % (Auto) (45-73) % Lymph % (Auto) (20-40) % [place] % (Auto) (2-11) % Eos % (Auto) (0-4) % Baso % (Auto) (0-2) % Lymph # (Auto) (1.2-4.9) X10*3/uL [place] # (Auto) (0.1-1.2) X10*3/uL Eos # (Auto) (0.0-0.4) X10*3/uL Baso # (Auto) (0.0-0.2) X10*3/uL Abs Immat Gran (auto) (0.00-0.03) X10*3/uL Absolute Neuts (auto) (2.0-8.3) X10*3/uL Absolute Nucleated RBC 0.000 (0.0-0.012) X10*3/uL Nucleated RBC % (auto) 0.0 (0.0-0.2) /100WBC Smear Tech's Comments PT 12.8 (10.8-13.0) SEC INR 1.1 (0.9-1.1) APTT 40.7 H (24.1-38.0) SEC VBG pH 7.38 (7.32-7.43) VBG pCO2 49 mmhg VBG pO2 66 mmhg VBG HCO3 28 mmol/L VBG O2 Saturation 92.4 % VBG Base Excess 2.5 mmol/L Sodium (135-145) mmol/L Potassium (3.3-5.1) mmol/l Chloride (96-108) mmol/L Carbon Dioxide (22-29) mmol/L Anion Gap (12-20) BUN (9-16) mg/dL Creatinine (0.5-1.4) mg/dL Estim Creat Clear Calc Estimated GFR Random Glucose (60-115) mg/dL Calcium (8.4-10.2) mg/dL Blood Type Antibody Screen Critical Care Time Critical Care Time Critical Care Time: Yes Total Critical Care Time: 35 Attestation: I attest to this time spent taking care of the patient Discharge Plan Discharge Clinical Impression: Epistaxis Prescriptions: No Action fluticasone propion-salmeterol [Advair HFA] 115-21 mcg/actuation HFA aerosol inhaler 1 puff inhalation BID 30 Days Qty: 12 RF: 3 diltiazem HCl 120 mg capsule,extended release 24hr 120 mg PO DAILY Qty: 30 RF: 0 tramadol 50 mg tablet 50 mg PO TID PRN (Reason: pain) 30 Days Qty: 90 RF: 0 cyproheptadine 2 mg/5 mL syrup 2 mg PO BID Qty: 300 RF: 2 lidocaine [Lidoderm] 5 % adhesive patch,medicated 1 patch topical DAILY Qty: 15 RF: 0 acetaminophen [Tylenol Arthritis Pain] 650 mg tablet extended release 650 mg PO Q8H PRN (Reason: pain) Qty: 30 RF: 0 flu vacc [id number] 6mos up(PF) 60 mcg (15 mcg x 4)/0.5 mL syringe 0.5 ml IM ONCE Qty: 0.5 RF: 0 Flublok Quad [id number] (PF) 180 mcg (45 mcg x 4)/0.5 mL syringe 0.5 ml IM ONCE Qty: 0.5 RF: 0 quetiapine 25 mg tablet 25 mg PO BEDTIME RF: 0 Ensure Liquid PO .2-3 times daily RF: 0 lorazepam 0.5 mg tablet 0.5 mg PO BEDTIME PRNRF: 0 nystatin 100,000 unit/mL suspension 4 ml PO DAILY RF: 0 albuterol sulfate [ProAir HFA] 90 mcg/actuation HFA aerosol inhaler 2 puff inhalation Q4-6H PRNRF: 0 omeprazole 20 mg capsule,delayed release(DR/EC) 20 mg PO BID RF: 0
[2020-03-23 18:52] LABS: Eosinophils Percent Auto 0.3 % (0-4); Hematocrit 30.7 % (37-47); Hemoglobin 9.9 g/dl (12.0-16.0); Imm Gran Abs Auto 0.03 X10*3/uL (0.00-0.03); Imm Gran Pct Auto 0.4 % (0.0-0.4); Lymphocytes Absolute Auto 2.4 X10*3/uL (1.2-4.9); Lymphocytes Percent Auto 33.5 % (20-40); MANUAL DIFF FLAG SCAN; Mean Corpuscular HGB Conc 32.2 g/dl (31.0-35.0); Mean Corpuscular Hemoglobin 34.1 pg (27.0-33.0); Mean Corpuscular Volume 105.9 fL (80-98); Mean Platelet Volume 9.3 fL (9.4-12.3); Monocytes Percent Auto 27.5 % (2-11); Neutrophils Absolute Auto 2.8 X10*3/uL (2.0-8.3); Neutrophils Percent Auto 38.3 % (45-73); Platelet Count 162 X10*3/uL (160-400); Red Cell Distribution Width 12.8 % (11.0-16.0); SCAN SMEAR FLAG 1; White Blood Count 7.2 X10*3/uL (4.8-10.8)
[2020-03-23] MEDS: Oxymetazoline HCl 0.05 % Nasal 15 ML SPRAY 2 SPRAY NOSTRIL-B (18:56)
[2020-03-23] MEDS: Tranexamic Acid 1,000 MG/10 ML VIAL 500 MG INTRANASAL ×2 (18:56→18:57)
[2020-03-23 18:57] LABS: INTERNATIONAL NORM RATIO 1.1 (0.9-1.1); Prothrombin Time 12.8 SEC (10.8-13.0)
[2020-03-23 18:59] LABS: Partial Thromboplastin Time 40.7 SEC (24.1-38.0)
--- NOTE | 2020-03-23 18:59 | PC.NURSE ---
PATIENT ARRIVED WITH NOSEBLEED 45 MINS PRIOR TO ARRIVAL. ACTIVELY BLEEDING. PROVIDER AT BEDSIDE. MEDICATION ADMINISTERED PER ORDER. PATIENTS DAUGHTER AT BEDSIDE. BLEEDING SLOWED DOWN. WILL CONTINUE TO MONITOR.
--- NOTE | 2020-03-23 19:13 | PC.NURSE ---
Report taken from kindra Brown RN resuming care. Per MD, plan for IV Ativan and to remain in the ED until morning for obs as family is uncomfortable bringing pt home at this time.
[2020-03-23 19:15] LABS: SLIDE REVIEW VERIFIED
[2020-03-23] MEDS: LORazepam 2 MG/ML VIAL 1 MG IVPUSH ×2 (19:20→21:53)
--- NOTE | 2020-03-23 19:25 | PC.NURSE ---
Pt medicated per EMAR with Ativan and ABX. Per MD, no BCX required.
[2020-03-23] MEDS: Albuterol Sulfate (0.083%) 2.5 MG/3 ML VIAL.NEB INHALE (20:43)
[2020-03-23 20:47] LABS: Anion Gap 15 (12-20); Blood Urea Nitrogen 22 mg/dL (9-16); Calcium 9.1 mg/dL (8.4-10.2); Carbon Dioxide 27 mmol/L (22-29); Chloride 102 mmol/L (96-108); Creatinine Clr Calc Pharmacy 33.7; Estimated Glomerular Filt Rate > 60; Glucose Random 96 mg/dL (60-115); Potassium 4.8 mmol/l (3.3-5.1); Sodium 139 mmol/L (135-145)
--- NOTE | 2020-03-23 21:29 | PC.NURSE ---
This RN at bedside, pt agitated and extremely uncomfortable at this time. Family at bedside explain that pt has been grabbing at everything, trying to pull nasal packing out. Plan to switch pt onto a hospital bed and move into room 8 for the night.
[2020-03-23] MEDS: Melatonin 3 MG TABLET 6 MG PO (21:52)
--- NOTE | 2020-03-23 22:00 | PC.NURSE ---
Pt medicated per EMAR, family at bedside. Pt restless and agitated, rocking in bed, O2 sat 88% on 4 lpm, pt is having difficulty keeping NC on due to nasal packing. MD at bedside, plan for IV Fentanyl.
[2020-03-23] MEDS: fentaNYL citrate/PF 100 MCG/2 ML VIAL 25 MCG IVPUSH (22:04)
--- NOTE | 2020-03-23 22:10 | PC.NURSE ---
Pt medicated per EMAR with Fentanyl. Pt resting in bed at this time with family at bedside.
--- NOTE | 2020-03-23 23:01 | PC.NURSE ---
Addendum entered by Samaria Keller 03/24/20 05:39: Pt refusing to take Olanzapine. Original Note: Pt remains agitated at this time, rocking herself back and forth in bed. Pt refusing to take Clonazepine. Pt remains tachycardic @ 130 bpm, pulling off NC, O2 sat 88%. NC taped to pts face, family remains at bedside. MD aware, continue to monitor.
[2020-03-23] MEDS: HYDROmorphone HCl 0.5 MG/0.5 ML SYRINGE IVPUSH (23:25)
[2020-03-23 23:27] LABS: Hematocrit 29.6 % (37-47); Hemoglobin 9.5 g/dl (12.0-16.0); Mean Corpuscular HGB Conc 32.1 g/dl (31.0-35.0); Mean Corpuscular Hemoglobin 34.1 pg (27.0-33.0); Mean Corpuscular Volume 106.1 fL (80-98); Mean Platelet Volume 9.5 fL (9.4-12.3); Platelet Count 194 X10*3/uL (160-400); Red Blood Count 2.79 X10*6/uL (4.20-5.50); Red Cell Distribution Width 12.8 % (11.0-16.0)
--- NOTE | 2020-03-23 23:32 | PC.NURSE ---
Pt medicated with Dilaudid. MD at bedside. Pt remains agitated, thrashing and rocking in bed. HR remains 128 bpm. Family at bedside.
[2020-03-23 23:38] LABS: Base Excess VBG 2.5 mmol/L; HCO3 VBG 28 mmol/L; Oxygen Saturation VBG 92.4 %; PCO2 VBG 49 mmhg; PO2 VBG 66 mmhg; pH VBG 7.38 (7.32-7.43)
[2020-03-23] MEDS: levalbuterol HCL 1.25 MG/3 ML VIAL.NEB INHALE (23:50)
[2020-03-24] VITALS (8 sets, daily range): BP systolic 128–141; BP diastolic 56–93; PULSE 107–118; RESP 18–22; TEMP 36.4; O2SAT 70–99
--- NOTE | 2020-03-24 00:16 | PC.NURSE ---
Pt sleeping in bed at this time.
--- NOTE | 2020-03-24 01:10 | PC.NURSE ---
Pt found sleeping in bed at this time, O2 sat applied, readying 70% with good pleth. Pt switched to a venti mask @ 10 lpm, O2 sat increasing to 95%. VSS. Continue to monitor.
--- NOTE | 2020-03-24 02:24 | PC.NURSE ---
RT at bedside assisting with Venturi mask as pt was satting @ 97% on a venti @ 45/10. Due to a history of COPD, this RN discussing decreasing O2. Pt switched to 35/6, satting @ 95%. Pt remains asleep in bed at this time.
--- NOTE | 2020-03-24 04:33 | PC.NURSE ---
Pt awake and agitated, thrashing in bed. Pt coughing constantly and tachypneic although O2 sat remains 96% on a venti mask. Lung sounds very diminished. RT called for treatment.
[2020-03-24] MEDS: Albuterol Sulfate (0.083%) 2.5 MG/3 ML VIAL.NEB 5 MG INHALE (04:38)
--- NOTE | 2020-03-24 04:45 | PC.NURSE ---
RT at bedside for treatment.
--- NOTE | 2020-03-24 04:53 | PC.NURSE ---
Due to difficulty maintaining pts O2 sat while on a NC and her worsening SOB/cough, this RN discussing the need for a CXR with MD due to possible aspiration, per MD, not necessary at this time and continue to monitor.
--- NOTE | 2020-03-24 05:24 | PC.NURSE ---
Pt sleeping comfortably in bed at this time, continue to monitor.
--- NOTE | 2020-03-24 06:49 | PC.NURSE ---
Daughter Rina requesting update on pt condition and plan of care [phone].
--- NOTE | 2020-03-24 06:56 | PC.NURSE ---
Daughter at bedside, per daughter, they wish to care for pt at home. Daughter states they have a plan to take shifts so she is not alone.
--- NOTE | 2020-03-24 07:08 | PC.NURSE ---
report taken from patrizia parker. pt resting with family at bedside. plan to wait for cm and dc home with family.
--- NOTE | 2020-03-24 08:01 | PC.NURSE ---
admin secretary aware of need for transport home.
--- NOTE | 2020-03-24 09:59 | MHC.CM.ED ---
Received case management consult overnight. However patient was discharged home with family prior to T/W arrival.
== END 2020-03-24 08:35 | disposition home or self-care (01) ==
PROVIDERS: Emergency Provider Emergency Medicine
DX: R04.0 Epistaxis (principal); Z79.899 Other long term (current) drug therapy
CPT/HCPCS: 30901; 36415; 80048; 82803; 85025; 85027; 85610; 85730; 86850; 86900; 86901; 94640; 96365; 96375; 96376; 99284; 99291; J0690; J1170; J2060; J3010

== ENCOUNTER 2020-04-08 | Outpatient (REF) | payer MEDICARE, SELFPAY ==
[2020-04-08 11:08] LABS: Hemoglobin 8.8 g/dl (12.0-16.0); Mean Corpuscular HGB Conc 31.4 g/dl (31.0-35.0); Mean Corpuscular Hemoglobin 33.8 pg (27.0-33.0); Mean Corpuscular Volume 107.7 fL (80-98); Mean Platelet Volume 9.9 fL (9.4-12.3); Platelet Count 318 X10*3/uL (160-400); Red Cell Distribution Width 12.4 % (11.0-16.0); White Blood Count 6.3 X10*3/uL (4.8-10.8)
== END 2020-04-08 00:01 | disposition home or self-care (01) ==
LOC: HO.LHD
PROVIDERS: Visit Provider Internal Medicine
DX: D64.9 Anemia, unspecified (principal)
CPT/HCPCS: 36415; 85027

== ENCOUNTER 2020-05-06 | Outpatient (REF) | payer MEDICARE, SELFPAY ==
[2020-05-06 10:44] LABS: Eosinophils Percent Auto 0.2 % (0-4); Hematocrit 28.5 % (37-47); Imm Gran Abs Auto 0.03 X10*3/uL (0.00-0.03); Imm Gran Pct Auto 0.6 % (0.0-0.4); Lymphocytes Absolute Auto 1.8 X10*3/uL (1.2-4.9); Lymphocytes Percent Auto 32.9 % (20-40); MANUAL DIFF FLAG NO; Mean Corpuscular HGB Conc 31.6 g/dl (31.0-35.0); Mean Corpuscular Hemoglobin 33.6 pg (27.0-33.0); Mean Corpuscular Volume 106.3 fL (80-98); Mean Platelet Volume 10.3 fL (9.4-12.3); Monocytes Absolute Auto 1.1 X10*3/uL (0.1-1.2); Neutrophils Absolute Auto 2.5 X10*3/uL (2.0-8.3); Neutrophils Percent Auto 46.3 % (45-73); Platelet Count 250 X10*3/uL (160-400); Red Blood Count 2.68 X10*6/uL (4.20-5.50); Red Cell Distribution Width 13.2 % (11.0-16.0); White Blood Count 5.4 X10*3/uL (4.8-10.8)
== END 2020-05-06 00:01 ==
LOC: HO.LHD
PROVIDERS: Visit Provider Internal Medicine
DX: D64.9 Anemia, unspecified (principal)
CPT/HCPCS: 36415; 85025

== ENCOUNTER 2020-06-03 13:51 | Outpatient (REF) | payer MEDICARE, SELFPAY ==
[2020-06-03 11:19] LABS: Hematocrit 27.8 % (37-47); Hemoglobin 8.9 g/dl (12.0-16.0); Mean Corpuscular Hemoglobin 33.2 pg (27.0-33.0); Mean Corpuscular Volume 103.7 fL (80-98); Platelet Count 235 X10*3/uL (160-400); Red Blood Count 2.68 X10*6/uL (4.20-5.50); Red Cell Distribution Width 13.8 % (11.0-16.0); White Blood Count 5.2 X10*3/uL (4.8-10.8)
== END 2020-06-03 13:52 | disposition home or self-care (01) ==
LOC: HO.LHD 13:51
PROVIDERS: Visit Provider Internal Medicine
DX: D64.9 Anemia, unspecified (principal)
CPT/HCPCS: 36415; 85027

== ENCOUNTER 2020-06-08 10:50 | Outpatient (REF) | payer MEDICARE, SELFPAY ==
--- NOTE | ~2020-06-08 | XR_ITS ---
EXAMINATION: XR FOOT, LEFT CLINICAL INFORMATION: Other specified soft tissue disorder COMPARISON: None TECHNIQUE: AP, lateral, and oblique views of the left foot. FINDINGS: Bone alignment is normal. No fracture or dislocation is seen. The bones are osteopenic. There is arthritis at the first MTP joint and metatarsal tarsal joints with joint space narrowing and osteophyte formation. There is a calcaneal spur at the Achilles tendon insertion. Soft tissues are otherwise unremarkable. XR/XR foot LT min 3V IMPRESSION: Osteopenia. Degenerative changes at the first MTP joints and metatarsal tarsal joints.
== END 2020-06-08 10:51 | disposition home or self-care (01) ==
LOC: HO.LAB 10:50
PROVIDERS: PCP Internal Medicine; Visit Provider Internal Medicine
DX: M79.89 Other specified soft tissue disorders (principal)
CPT/HCPCS: 73630

== ENCOUNTER 2020-07-01 00:22 | Outpatient (REF) | payer MEDICARE, SELFPAY ==
[2020-07-01 10:31] LABS: Hematocrit 28.5 % (37-47); Hemoglobin 8.7 g/dl (12.0-16.0); Mean Corpuscular HGB Conc 30.5 g/dl (31.0-35.0); Mean Corpuscular Hemoglobin 31.5 pg (27.0-33.0); Mean Corpuscular Volume 103.3 fL (80-98); Mean Platelet Volume 9.6 fL (9.4-12.3); Platelet Count 259 X10*3/uL (160-400); Red Blood Count 2.76 X10*6/uL (4.20-5.50); White Blood Count 5.4 X10*3/uL (4.8-10.8)
== END 2020-07-01 00:23 | disposition home or self-care (01) ==
LOC: HO.LHD 00:22
PROVIDERS: Visit Provider Internal Medicine
DX: D64.9 Anemia, unspecified (principal)
CPT/HCPCS: 36415; 85027

== ENCOUNTER 2020-07-29 07:14 | Outpatient (REF) | payer MEDICARE, SELFPAY ==
[2020-07-29 11:45] LABS: Hematocrit 30.7 % (37-47); Hemoglobin 9.4 g/dl (12.0-16.0); Mean Corpuscular HGB Conc 30.6 g/dl (31.0-35.0); Mean Corpuscular Hemoglobin 31.5 pg (27.0-33.0); Mean Platelet Volume 10.4 fL (9.4-12.3); Platelet Count 242 X10*3/uL (160-400); Red Blood Count 2.98 X10*6/uL (4.20-5.50); Red Cell Distribution Width 14.6 % (11.0-16.0); White Blood Count 6.6 X10*3/uL (4.8-10.8)
== END 2020-07-29 07:15 | disposition home or self-care (01) ==
LOC: HO.LHD 07:14
PROVIDERS: Visit Provider Internal Medicine
DX: D64.9 Anemia, unspecified (principal)
CPT/HCPCS: 36415; 85027

== ENCOUNTER 2020-09-02 01:08 | Outpatient (REF) | payer MEDICARE, SELFPAY ==
[2020-09-02 11:15] LABS: Hematocrit 28.6 % (37-47); Hemoglobin 8.7 g/dl (12.0-16.0); Mean Corpuscular HGB Conc 30.4 g/dl (31.0-35.0); Mean Corpuscular Hemoglobin 30.9 pg (27.0-33.0); Mean Corpuscular Volume 101.4 fL (80-98); Platelet Count 205 X10*3/uL (160-400); Red Blood Count 2.82 X10*6/uL (4.20-5.50); Red Cell Distribution Width 14.6 % (11.0-16.0)
== END 2020-09-02 01:09 | disposition home or self-care (01) ==
LOC: HO.LHD 01:08
PROVIDERS: Visit Provider Internal Medicine
DX: D64.9 Anemia, unspecified (principal)
CPT/HCPCS: 36415; 85027

== ENCOUNTER 2020-09-30 00:19 | Outpatient (REF) | payer MEDICARE, SELFPAY ==
[2020-09-30 11:27] LABS: Hematocrit 28.6 % (37-47); Mean Corpuscular HGB Conc 31.5 g/dl (31.0-35.0); Mean Corpuscular Hemoglobin 31.5 pg (27.0-33.0); Mean Platelet Volume 9.8 fL (9.4-12.3); Platelet Count 222 X10*3/uL (160-400); Red Blood Count 2.86 X10*6/uL (4.20-5.50); White Blood Count 6.7 X10*3/uL (4.8-10.8)
== END 2020-09-30 00:20 | disposition home or self-care (01) ==
LOC: HO.LHD 00:19
PROVIDERS: Visit Provider Internal Medicine
DX: D64.9 Anemia, unspecified (principal)
CPT/HCPCS: 36415; 85027

== ENCOUNTER 2020-10-28 00:48 | Outpatient (REF) | payer MEDICARE, SELFPAY ==
[2020-10-28 10:52] LABS: Hematocrit 30.7 % (37-47); Hemoglobin 9.5 g/dl (12.0-16.0); Mean Corpuscular HGB Conc 30.9 g/dl (31.0-35.0); Mean Corpuscular Hemoglobin 31.8 pg (27.0-33.0); Mean Corpuscular Volume 102.7 fL (80-98); Mean Platelet Volume 9.9 fL (9.4-12.3); Platelet Count 214 X10*3/uL (160-400); Red Blood Count 2.99 X10*6/uL (4.20-5.50); Red Cell Distribution Width 14.7 % (11.0-16.0); White Blood Count 5.7 X10*3/uL (4.8-10.8)
== END 2020-10-28 00:49 | disposition home or self-care (01) ==
LOC: HO.LHD 00:48
PROVIDERS: Visit Provider Internal Medicine
DX: D64.9 Anemia, unspecified (principal)
CPT/HCPCS: 36415; 85027

== ENCOUNTER 2020-11-02 12:32 | Emergency (ER) | payer MEDICARE, SELFPAY ==
--- NOTE | ~2020-11-02 | XR_ITS ---
EXAMINATION: XR CHEST CLINICAL INFORMATION: Shortness of breath COMPARISON: Prior radiographs most recent February 2020 CTA chest November 2019 Left shoulder x-ray February 2020 TECHNIQUE: Frontal view of the chest was obtained. FINDINGS: There is a nodule opacity in the right lower lobe possibly with spiculated margins. This measures approximately 2.6 cm transverse. This appears increased in size compared with prior imaging examinations. Otherwise is minimal generalized increased interstitial markings compatible with chronic change. Tiny nodular density in the left upper lobe dominant reflect a calcified granuloma on prior CT. Calcification of the dorsal aorta. Cardiac silhouette mediastinum pulmonary vascularity normal. There is a ununited left mid shaft clavicle fracture with increased displacement and bony overlap compared with the prior x-ray February 2020 approximately 2.5 cm of bony overlap of the 2 fragments noted. Suspect at least some osseous bridging across the fragments. Spondylosis of the dorsal spine unchanged. XR/XR chest 1V IMPRESSION: Nodular opacity in the right lower lobe likely reflects an enlarging lung nodule. With prior imaging examinations including chest x-ray February 2020 and CTA chest November 2019. LUNG NEOPLASM is the primary consideration and would need to be excluded. This critical result was discussed with Gely Marin at approximately 2:45 PM on November 02, 2020 and it was ascertained that the content and urgency of the report was understood at the time of direct communication.
--- NOTE | 2020-11-02 12:39 | ECG_ITS ---
Test Reason : DYSPNEA Blood Pressure : / mmHG Vent. Rate : 086 BPM Atrial Rate : 086 BPM P-R Int : 176 ms QRS Dur : 122 ms QT Int : 456 ms P-R-T Axes : 073 -72 089 degrees QTc Int : 545 ms Normal sinus rhythm Left axis deviation Right bundle branch block Left ventricular hypertrophy with repolarization abnormality Anterior infarct , age undetermined Abnormal ECG When compared with ECG of 07-DEC-2019 18:11, Right bundle branch block has replaced Incomplete left bundle branch block Anterior infarct is now Present Referred By: Gely Marin Electronically Signed By:ERVIN FUENTES
[2020-11-02 12:45] VITALS: BP 117/43; PULSE 91; RESP 20; TEMP 37; O2SAT 98; BMI 14.3
--- NOTE | 2020-11-02 12:46 | ED.SOB ---
HPI - SOB/Dyspnea General Chief Complaint: Dyspnea Stated Complaint: DIFF BREATHING,FEELS BETTER AFTER HOME NEB Time Seen by Provider: 11/02/20 12:38 Source: patient, EMS and manager storage Mode of arrival: EMS Limitations: no limitations History of Present Illness HPI Narrative: 85-year-old female history of COPD and former smoker, patient normally uses 2 L of oxygen at home, since yesterday patient began having shortness of breath, and patient overall feels weak, no chest pain but complaining of upper back pain. Patient also feels chills but no fever. No coughing. Patient took bronchodilator therapy at home feel some improvement. Related Data Home Medications Medication Instructions Recorded Confirmed albuterol sulfate 90 mcg/actuation 2 puff INHALATION Q4-6H PRN 01/29/20 10/18/20 aerosol inhaler food supplemt, lactose-reduced 1 ea PO .2-3 times daily ml 01/29/20 10/18/20 nystatin 100,000 unit/mL oral 4 ml PO DAILY ml 01/29/20 10/18/20 suspension omeprazole 20 mg capsule,delayed 20 mg PO BID 01/29/20 10/18/20 release Previous Rx's Medication Instructions Recorded acetaminophen [Tylenol Arthritis 650 mg PO Q8H PRN #30 tab 02/01/20 Pain] PRESSURE AIR MATTRESS #1 ea 04/27/20 fluticasone propionate 115 1 puff INHALATION BID 30 Days #12 g 08/13/20 mcg-salmeterol 21 mcg/actuation HFA inhaler cyproheptadine 2 mg/5 mL oral syrup 2 mg PO BID #300 ml 08/18/20 montelukast 10 mg tablet 10 mg PO DAILY #90 tab 08/18/20 diltiazem HCl 120 mg 120 mg PO DAILY #30 cap 08/31/20 capsule,extended release 24 hr meclizine 12.5 mg tablet 12.5 mg PO TID PRN #90 tab 10/11/20 sertraline 100 mg tablet 100 mg PO DAILY #90 tab 10/11/20 ipratropium 0.5 mg-albuterol 3 mg 3 ml INHALATION Q4-6H PRN #360 ml 10/21/20 (2.5 mg base)/3 mL nebulization soln tramadol 50 mg tablet 50 mg PO TID PRN 30 Days #90 tab 10/21/20 prednisone 20 mg PO BID #10 tab 11/02/20 Allergies Allergy/AdvReac Type Severity Reaction Status Date / Time gabapentin [GABAPENTIN] Allergy Mild INCREASED Verified 09/29/20 12:47 BACK PAIN Review of Systems Review of Systems: All other systems are reviewed and are negative Constitutional: Reports as per HPI and Reports no additional constitutional complaints Eyes: Reports as per HPI and Reports no additional eye complaints Reports system reviewed and no additional complaints, except as documented Cardiovascular: Reports as per HPI and Reports no additional cardiovascular complaints Respiratory: Reports as per HPI and Reports no additional respiratory complaints Gastrointestinal: Reports as per HPI and Reports no additional gastrointestinal complaints Genitourinary: Reports no additional female genitourinary complaints Musculoskeletal: Reports no additional musculoskeletal complaints Skin/Breast: Reports system reviewed and no additional complaints, except as docu Psychiatric: Reports no additional psychiatric complaints Endocrine: Reports no additional endocrine complaints Hematologic/Lymphatic: Reports no additional hematologic/lymphatic complaints Allergic/Immunologic: Reports no additional allergic/immunologic complaints Reports system reviewed and no additional complaints, except as documented and Reports Abnormal speech present [facility] Past Medical History Medical History (HFpEF) heart failure with preserved ejection fraction Anemia Chronic respiratory failure Closed left clavicular fracture COPD (chronic obstructive pulmonary disease) Dementia Depression Fibromyalgia Multiple falls Osteoarthritis Pulmonary nodule SVT (supraventricular tachycardia) Swelling of left foot Surgical History History of hysterectomy Family History Family History Father Cancer Mother CVD (cardiovascular disease) Social History Social History Alcohol intake: former Patient Tobacco Use Status: Former Tobacco user Tobacco use type: Cigarette Advance Directives: No Advance Directives Information Provided: No Advance Directives Date on File: 09/11/08 Physical Exam Vital Signs: Vital Signs: Last Vital Signs Temp 97.8 F 11/02/20 15:49 Pulse 102 H 11/02/20 15:49 Resp 17 11/02/20 15:49 BP 199/79 H 11/02/20 15:49 Pulse Ox 97 11/02/20 15:49 Oxygen Flow Rate 2 11/02/20 12:45 Body Mass Index 14.3 vital signs have been reviewed as appeared to be correct. Blood pressure normal. Heart rate normal. Respiration rate normal. Temperature normal. Oxygen saturation normal. Appearance: Alert. Oriented X3. No acute distress. Head: Normal external exam. Normocephalic. Atraumatic. No [place] signs noted. No raccoon eyes noted Eyes: PERRLA. EOMI. Conjunctiva and sclera normal. Eyelids normal. ENT: TM's Normal. Pharynx normal. Uvula midline. Moist mucous membranes. No trismus noted. No drooling noted. No muffled voice noted. Neck: Normal inspection. Neck supple. FROM. No adenopathy. Thyroid Normal. No meningeal signs. No neck mass noted. CVS: Normal heart rate and rhythm. Heart sound normal. No murmurs noted. Pulses normal throughout. Respiratory: No respiratory distress. Painless inspiration. Breath sounds normal. No wheezes/rales/rhonchi noted. Chest nontender. No accessory muscle usage noted or decreased air movement noted. Abdomen: Soft and nontender. Bowel sounds normal in all 4 quadrants. No distention noted. No organomegaly noted. No visible injury noted. Back: No CVA tenderness. Full range of motion noted. Skin: Skin warm and dry. Normal skin color. Normal skin turgor. No rashes/lesions/lacerations noted. Extremities: No lower extremity edema. Extremities exhibit normal range of motion. Extremities nontender. Neuro: Oriented X 3. No motor deficit. No sensory deficit. Reflexes normal. Course Course Course Narrative: assessment and plan. 85-year-old female with history of COPD, patient used 2 L of oxygen at home presented with 2 days of shortness of breath. Chest x-ray showed 2.5 cm of right lung mass highly suspicious for malignancy. The x-ray finding were discussed with the patient using manager storage service and also with her daughter who spoke Korean, patient was following with Dr. Gee from Oncology but patient/family decided not to treat the lung mass because the patient's age, patient/family opted to go home specially patient feels better now, will discharge the patient on prednisone. MDM - SOB/Dyspnea Lab Data Attestation: I reviewed the patient's lab results. Result diagrams: 11/02/20 14:25 11/02/20 14:25 Labs: Lab Results 11/02/20 11/02/20 11/02/20 Range/Units 14:25 14:25 14:25 WBC 4.8 (4.8-10.8) X10*3/uL RBC 3.21 L (4.20-5.50) X10*6/uL Hgb 10.2 L (12.0-16.0) g/dl Hct 32.5 L (37-47) % MCV 101.2 H (80-98) fL MCH 31.8 (27.0-33.0) pg MCHC 31.4 (31.0-35.0) g/dl RDW 14.5 (11.0-16.0) % Plt Count 216 (160-400) X10*3/uL MPV 9.9 (9.4-12.3) fL Immature Gran % (Auto) 0.4 (0.0-0.4) % Neut % (Auto) 47.8 (45-73) % Lymph % (Auto) 30.1 (20-40) % [place] % (Auto) 21.3 H (2-11) % Eos % (Auto) 0.4 (0-4) % Baso % (Auto) 0.0 (0-2) % Lymph # (Auto) 1.4 (1.2-4.9) X10*3/uL [place] # (Auto) 1.0 (0.1-1.2) X10*3/uL Eos # (Auto) 0.0 (0.0-0.4) X10*3/uL Baso # (Auto) 0.0 (0.0-0.2) X10*3/uL Abs Immat Gran (auto) 0.02 (0.00-0.03) X10*3/uL Absolute Neuts (auto) 2.3 (2.0-8.3) X10*3/uL Absolute Nucleated RBC 0.000 (0.0-0.012) X10*3/uL Nucleated RBC % (auto) 0.0 (0.0-0.2) /100WBC Smear Tech's Comments VERIFIED Sodium 141 (135-145) mmol/L Potassium 4.3 (3.3-5.1) mmol/L Chloride 104 (96-108) mmol/L Carbon Dioxide 26 (22-29) mmol/L Anion Gap 15 (12-20) BUN 14 (9-16) mg/dL Creatinine 0.77 (0.5-1.4) mg/dL Estim Creat Clear Calc 30.0 Estimated GFR > 60 Random Glucose 90 (60-115) mg/dL Lactic Acid (0.5-2.0) mmol/L Calcium 9.9 D (8.4-10.2) mg/dL Total Bilirubin 0.6 (0.0-1.0) mg/dL Direct Bilirubin 0.2 (0.0-0.5) mg/dL AST 20 (5-31) U/L ALT 11 (0-31) U/L Alkaline Phosphatase 111 (39-117) U/L Troponin I High Sens 7.7 (<3.5-17.0) ng/L B-Natriuretic Peptide 48 (<100) pg/mL Total Protein 7.3 (6.5-8.0) g/dL Albumin 4.0 (3.5-5.0) g/dL COVID-19 (JASPAL) (Negative) COVID-19 Clin Com 11/02/20 11/02/20 Range/Units 14:25 14:58 WBC (4.8-10.8) X10*3/uL RBC (4.20-5.50) X10*6/uL Hgb (12.0-16.0) g/dl Hct (37-47) % MCV (80-98) fL MCH (27.0-33.0) pg MCHC (31.0-35.0) g/dl RDW (11.0-16.0) % Plt Count (160-400) X10*3/uL MPV (9.4-12.3) fL Immature Gran % (Auto) (0.0-0.4) % Neut % (Auto) (45-73) % Lymph % (Auto) (20-40) % [place] % (Auto) (2-11) % Eos % (Auto) (0-4) % Baso % (Auto) (0-2) % Lymph # (Auto) (1.2-4.9) X10*3/uL [place] # (Auto) (0.1-1.2) X10*3/uL Eos # (Auto) (0.0-0.4) X10*3/uL Baso # (Auto) (0.0-0.2) X10*3/uL Abs Immat Gran (auto) (0.00-0.03) X10*3/uL Absolute Neuts (auto) (2.0-8.3) X10*3/uL Absolute Nucleated RBC (0.0-0.012) X10*3/uL Nucleated RBC % (auto) (0.0-0.2) /100WBC Smear Tech's Comments Sodium (135-145) mmol/L Potassium (3.3-5.1) mmol/L Chloride (96-108) mmol/L Carbon Dioxide (22-29) mmol/L Anion Gap (12-20) BUN (9-16) mg/dL Creatinine (0.5-1.4) mg/dL Estim Creat Clear Calc Estimated GFR Random Glucose (60-115) mg/dL Lactic Acid 0.7 (0.5-2.0) mmol/L Calcium (8.4-10.2) mg/dL Total Bilirubin (0.0-1.0) mg/dL Direct Bilirubin (0.0-0.5) mg/dL AST (5-31) U/L ALT (0-31) U/L Alkaline Phosphatase (39-117) U/L Troponin I High Sens (<3.5-17.0) ng/L B-Natriuretic Peptide (<100) pg/mL Total Protein (6.5-8.0) g/dL Albumin (3.5-5.0) g/dL COVID-19 ([facility]ASPAL) Negative (Negative) COVID-19 Clin Com See Note Imaging Data Chest x-ray: Radiologist's impression: Nodular opacity in the right lower lobe likely reflects an enlarging lung nodule. With prior imaging examinations including chest x-ray February 2020 and CTA chest November 2019. LUNG NEOPLASM is the primary consideration and would need to be excluded. This critical result was discussed with Gely Marin at approximately 2:45 PM on November 02, 2020 and it was ascertained that the content and urgency of the report was understood at the time of direct communication. Discharge Plan Discharge Clinical Impression: Lung mass COPD (chronic obstructive pulmonary disease) Qualifiers: COPD type: COPD with acute exacerbation Qualified Code(s): J44.1 - Chronic obstructive pulmonary disease with (acute) exacerbation Patient Disposition: Home, Self-Care Instructions: Lung Cancer (DC) Prescriptions: New prednisone 20 mg tablet 20 mg PO BID Qty: 10 RF: 0 No Action (DME) PRESSURE AIR MATTRESS See Rx Instructions .Route .MEDSUPPLY Qty: 1 RF: 0 Advair HFA 115-21 mcg/actuation HFA aerosol inhaler 1 puff inhalation BID 30 Days Qty: 12 RF: 3 montelukast 10 mg tablet 10 mg PO DAILY Qty: 90 RF: 1 cyproheptadine 2 mg/5 mL syrup 2 mg PO BID Qty: 300 RF: 2 diltiazem HCl 120 mg capsule,extended release 24hr 120 mg PO DAILY Qty: 30 RF: 5 sertraline 100 mg tablet 100 mg PO DAILY Qty: 90 RF: 1 meclizine 12.5 mg tablet 12.5 mg PO TID PRN (Reason: for dizziness) Qty: 90 RF: 0 tramadol 50 mg tablet 50 mg PO TID PRN (Reason: pain) 30 Days Qty: 90 RF: 0 ipratropium-albuterol 0.5 mg-3 mg(2.5 mg base)/3 mL solution for nebulization 3 ml inhalation Q4-6H PRN (Reason: shortness of breath) Qty: 360 RF: 3 acetaminophen [Tylenol Arthritis Pain] 650 mg tablet extended release 650 mg PO Q8H PRN (Reason: pain) Qty: 30 RF: 0 Ensure Liquid 1 ea PO .2-3 times daily RF: 0 nystatin 100,000 unit/mL suspension 4 ml PO DAILY RF: 0 albuterol sulfate [ProAir HFA] 90 mcg/actuation HFA aerosol inhaler 2 puff inhalation Q4-6H PRN (Reason: Wheezing) RF: 0 omeprazole 20 mg capsule,delayed release(DR/EC) 20 mg PO BID RF: 0 Referrals: Vj Hall MD [Primary Care Provider] - 2 days Connie Gee MD [Physician] - 2 days
[2020-11-02 14:34] LABS: Eosinophils Percent Auto 0.4 % (0-4); Hematocrit 32.5 % (37-47); Hemoglobin 10.2 g/dl (12.0-16.0); Imm Gran Abs Auto 0.02 X10*3/uL (0.00-0.03); Imm Gran Pct Auto 0.4 % (0.0-0.4); Lymphocytes Absolute Auto 1.4 X10*3/uL (1.2-4.9); Lymphocytes Percent Auto 30.1 % (20-40); MANUAL DIFF FLAG SCAN; Mean Corpuscular HGB Conc 31.4 g/dl (31.0-35.0); Mean Corpuscular Hemoglobin 31.8 pg (27.0-33.0); Mean Corpuscular Volume 101.2 fL (80-98); Mean Platelet Volume 9.9 fL (9.4-12.3); Monocytes Percent Auto 21.3 % (2-11); Neutrophils Absolute Auto 2.3 X10*3/uL (2.0-8.3); Neutrophils Percent Auto 47.8 % (45-73); Platelet Count 216 X10*3/uL (160-400); Red Blood Count 3.21 X10*6/uL (4.20-5.50); Red Cell Distribution Width 14.5 % (11.0-16.0); SCAN SMEAR FLAG 1; White Blood Count 4.8 X10*3/uL (4.8-10.8)
[2020-11-02 14:54] LABS: Lactic Acid 0.7 mmol/L (0.5-2.0)
[2020-11-02 14:59] LABS: Alanine Aminotransferase 11 U/L (0-31); Alkaline Phosphatase 111 U/L (39-117); Anion Gap 15 (12-20); Aspartate Amino Transferase 20 U/L (5-31); Bilirubin Direct 0.2 mg/dL (0.0-0.5); Bilirubin Total 0.6 mg/dL (0.0-1.0); Blood Urea Nitrogen 14 mg/dL (9-16); Calcium 9.9 mg/dL (8.4-10.2); Carbon Dioxide 26 mmol/L (22-29); Chloride 104 mmol/L (96-108); Estimated Glomerular Filt Rate > 60; Glucose Random 90 mg/dL (60-115); Potassium 4.3 mmol/L (3.3-5.1); Sodium 141 mmol/L (135-145); Total Protein 7.3 g/dL (6.5-8.0)
[2020-11-02 15:04] LABS: B Type Natriuretic Peptide 48 pg/mL (<100); Troponin-I High Sensitivity 7.7 ng/L (<3.5-17.0)
[2020-11-02 15:15] LABS: SLIDE REVIEW VERIFIED
[2020-11-02] MEDS: Albuterol Sulfate (0.083%) 2.5 MG/3 ML VIAL.NEB 5 MG INHALE (15:26)
[2020-11-02] MEDS: Albuterol/Iprat 2.5/0.5MG 3 ML AMPUL.NEB INHALE (15:26)
[2020-11-02 15:28] VITALS: PULSE 87; O2SAT 94
[2020-11-02 15:33] LABS: COVID-19 Test Negative (Negative); IDNOW Serial# 9DD0AD1C
[2020-11-02 15:49] VITALS: BP 199/79; PULSE 102; RESP 17; TEMP 36.6; O2SAT 97
--- NOTE | 2020-11-02 15:51 | PC.NURSE ---
[facility] AWARE OF PATIENT HIGH BLOOD PRESSURE .
[2020-11-02] MEDS: Magnesium Sulfate/H2O 2 GM/50 ML PIGGYBACK IV (15:56)
[2020-11-02] MEDS: methylPREDNISolone Sod Succ 125 MG/2 ML VIAL IVPUSH (15:57)
== END 2020-11-02 17:30 | disposition home or self-care (01) ==
PROVIDERS: Emergency Provider Emergency Medicine; PCP Internal Medicine
DX: R91.8 Other nonspecific abnormal finding of lung field (principal); J44.1 Chronic obstructive pulmonary disease with (acute) exacerbation; R06.02 Shortness of breath; Z99.81 Dependence on supplemental oxygen; Z87.891 Personal history of nicotine dependence; Z20.822 Contact with and (suspected) exposure to COVID-19
CPT/HCPCS: 36415; 71045; 80048; 80076; 83605; 83880; 84484; 85025; 87040; 87635; 93005; 94640; 94644; 96365; 96366; 96375; 99284; 99285; J2930; J3475

== ENCOUNTER 2020-12-02 07:17 | Outpatient (REF) | payer MEDICARE, SELFPAY ==
[2020-12-02 11:26] LABS: Basophils Percent Auto 0.2 % (0-2); Hematocrit 31.6 % (37-47); Hemoglobin 9.6 g/dl (12.0-16.0); Imm Gran Abs Auto 0.06 X10*3/uL (0.00-0.03); Imm Gran Pct Auto 0.9 % (0.0-0.4); Lymphocytes Absolute Auto 2.4 X10*3/uL (1.2-4.9); Lymphocytes Percent Auto 36.2 % (20-40); MANUAL DIFF FLAG SCAN; Mean Corpuscular HGB Conc 30.4 g/dl (31.0-35.0); Mean Corpuscular Hemoglobin 32.1 pg (27.0-33.0); Mean Corpuscular Volume 105.7 fL (80-98); Mean Platelet Volume 10.2 fL (9.4-12.3); Monocytes Absolute Auto 1.5 X10*3/uL (0.1-1.2); Monocytes Percent Auto 22.8 % (2-11); Neutrophils Absolute Auto 2.6 X10*3/uL (2.0-8.3); Neutrophils Percent Auto 39.9 % (45-73); Platelet Count 281 X10*3/uL (160-400); Red Blood Count 2.99 X10*6/uL (4.20-5.50); Red Cell Distribution Width 14.6 % (11.0-16.0); SCAN SMEAR FLAG 1; White Blood Count 6.5 X10*3/uL (4.8-10.8)
[2020-12-02 11:43] LABS: B Type Natriuretic Peptide 26 pg/mL (<100)
[2020-12-02 11:54] LABS: Alanine Aminotransferase 13 U/L (0-31); Albumin Level 3.5 g/dL (3.5-5.0); Alkaline Phosphatase 100 U/L (39-117); Anion Gap 12 (12-20); Aspartate Amino Transferase 19 U/L (5-31); Bilirubin Total 0.3 mg/dL (0.0-1.0); Blood Urea Nitrogen 15 mg/dL (9-16); Calcium 9.3 mg/dL (8.4-10.2); Carbon Dioxide 32 mmol/L (22-29); Chloride 102 mmol/L (96-108); Cholesterol 124 mg/dL; Estimated Glomerular Filt Rate > 60; Glucose Fasting 82 mg/dL (60-99); HDL Cholesterol 48 mg/dL; Iron 36 mcg/dL (30-160); LDL Cholesterol Calculated 61 mg/dl; Percent Iron Saturation 14 % (15-50); Potassium 4.5 mmol/L (3.3-5.1); Sodium 141 mmol/L (135-145); Total Iron Binding Capacity 254 mcg/dL (228-428); Total Protein 6.2 g/dL (6.5-8.0); Triglycerides 77 mg/dL; Unsaturated Iron Binding 218 ug/dL
[2020-12-02 11:58] LABS: TSH reflex Free T4 2.57 uIU/mL (0.32-4.0); Vitamin D 25-OH Total 78.1 ng/mL (>30)
[2020-12-02 12:00] LABS: SLIDE REVIEW VERIFIED
[2020-12-02 12:15] LABS: Erythrocyte Sedimentation Rate 98 MM/HR (0-20)
[2020-12-02 14:41] LABS: Glucose Urine UA NEG (NEG); Leukocyte Esterase Urine NEG (NEG); Nitrite Urine NEG (NEG); PH 6.5 (5.0-8.0); Specific Gravity - Urine <= 1.005 (1.005-1.025); Urine Blood NEG (NEG); Urine Ketones NEG (NEG); Urine Protein NEG (NEG-TRACE)
[2020-12-02 14:42] LABS: Appearance Urine CLEAR; Color Urine YELLOW
== END 2020-12-02 07:18 | disposition home or self-care (01) ==
LOC: HO.LHD 07:17
PROVIDERS: Internal Medicine; Visit Provider Internal Medicine
DX: Z00.00 Encounter for general adult medical examination without abnormal findings (principal); I11.0 Hypertensive heart disease with heart failure; I50.32 Chronic diastolic (congestive) heart failure; E78.00 Pure hypercholesterolemia, unspecified; J44.9 Chronic obstructive pulmonary disease, unspecified; M79.7 Fibromyalgia; E55.9 Vitamin D deficiency, unspecified; D64.9 Anemia, unspecified; R29.6 Repeated falls
CPT/HCPCS: 36415; 80053; 80061; 81003; 82306; 83540; 83880; 84443; 85025; 85652

== ENCOUNTER 2020-12-30 08:27 | Outpatient (REF) | payer MEDICARE, SELFPAY ==
[2020-12-30 10:45] LABS: Eosinophils Percent Auto 0.3 % (0-4); Hematocrit 32.5 % (37-47); Hemoglobin 10.2 g/dl (12.0-16.0); Imm Gran Abs Auto 0.04 X10*3/uL (0.00-0.03); Imm Gran Pct Auto 0.6 % (0.0-0.4); Lymphocytes Absolute Auto 2.8 X10*3/uL (1.2-4.9); Lymphocytes Percent Auto 40.4 % (20-40); MANUAL DIFF FLAG SCAN; Mean Corpuscular HGB Conc 31.4 g/dl (31.0-35.0); Mean Corpuscular Hemoglobin 31.9 pg (27.0-33.0); Mean Corpuscular Volume 101.6 fL (80-98); Monocytes Absolute Auto 1.7 X10*3/uL (0.1-1.2); Monocytes Percent Auto 25.2 % (2-11); Neutrophils Absolute Auto 2.3 X10*3/uL (2.0-8.3); Neutrophils Percent Auto 33.5 % (45-73); Platelet Count 263 X10*3/uL (160-400); Red Cell Distribution Width 13.6 % (11.0-16.0); SCAN SMEAR FLAG 1; White Blood Count 6.9 X10*3/uL (4.8-10.8)
[2020-12-30 11:13] LABS: SLIDE REVIEW VERIFIED
== END 2020-12-30 08:28 | disposition home or self-care (01) ==
LOC: HO.LHD 08:27
PROVIDERS: Visit Provider Internal Medicine
DX: D64.9 Anemia, unspecified (principal)
CPT/HCPCS: 36415; 85025

== ENCOUNTER 2021-02-03 11:44 | Outpatient (REF) | payer MEDICARE, SELFPAY ==
[2021-02-03 11:38] LABS: Basophils Percent Auto 0.2 % (0-2); Eosinophils Percent Auto 0.6 % (0-4); Hematocrit 32.3 % (37-47); Hemoglobin 10.1 g/dl (12.0-16.0); Imm Gran Abs Auto 0.04 X10*3/uL (0.00-0.03); Imm Gran Pct Auto 0.6 % (0.0-0.4); Lymphocytes Absolute Auto 1.9 X10*3/uL (1.2-4.9); Lymphocytes Percent Auto 29.9 % (20-40); MANUAL DIFF FLAG SCAN; Mean Corpuscular HGB Conc 31.3 g/dl (31.0-35.0); Mean Corpuscular Hemoglobin 32.2 pg (27.0-33.0); Mean Corpuscular Volume 102.9 fL (80-98); Mean Platelet Volume 10.9 fL (9.4-12.3); Monocytes Absolute Auto 1.7 X10*3/uL (0.1-1.2); Monocytes Percent Auto 26.7 % (2-11); Neutrophils Absolute Auto 2.6 X10*3/uL (2.0-8.3); Platelet Count 168 X10*3/uL (160-400); Red Blood Count 3.14 X10*6/uL (4.20-5.50); Red Cell Distribution Width 13.4 % (11.0-16.0); SCAN SMEAR FLAG 1; White Blood Count 6.3 X10*3/uL (4.8-10.8)
[2021-02-03 13:33] LABS: SLIDE REVIEW VERIFIED
== END 2021-02-03 11:45 | disposition home or self-care (01) ==
LOC: HO.LHD 11:44
PROVIDERS: Visit Provider Internal Medicine
DX: D64.9 Anemia, unspecified (principal)
CPT/HCPCS: 36415; 85025

== ENCOUNTER 2021-03-03 07:01 | Outpatient (REF) | payer MEDICARE, SELFPAY ==
[2021-03-03 09:33] LABS: Eosinophils Percent Auto 0.4 % (0-4); Hemoglobin 10.9 g/dl (12.0-16.0); Imm Gran Abs Auto 0.02 X10*3/uL (0.00-0.03); Imm Gran Pct Auto 0.4 % (0.0-0.4); Lymphocytes Absolute Auto 1.5 X10*3/uL (1.2-4.9); Lymphocytes Percent Auto 33.5 % (20-40); MANUAL DIFF FLAG SCAN; Mean Corpuscular HGB Conc 31.1 g/dl (31.0-35.0); Mean Corpuscular Hemoglobin 32.8 pg (27.0-33.0); Mean Corpuscular Volume 105.4 fL (80.0-98.0); Mean Platelet Volume 9.9 fL (9.4-12.3); Monocytes Absolute Auto 1.2 X10*3/uL (0.1-1.2); Monocytes Percent Auto 25.7 % (2-11); Neutrophils Absolute Auto 1.84 x10*3/uL (2.0-8.3); Platelet Count 216 X10*3/uL (160-400); Red Blood Count 3.32 X10*6/uL (4.20-5.50); Red Cell Distribution Width 13.2 % (11.0-16.0); SCAN SMEAR FLAG 1; White Blood Count 4.6 X10*3/uL (4.8-10.8)
[2021-03-03 10:04] LABS: SLIDE REVIEW VERIFIED
[2021-03-03 10:54] LABS: TSH reflex Free T4 1.94 uIU/mL (0.32-4.0)
[2021-03-03 14:37] LABS: Appearance Urine CLEAR; Color Urine YELLOW; Glucose Urine UA NEG (NEG); Leukocyte Esterase Urine NEG (NEG); Nitrite Urine NEG (NEG); Specific Gravity - Urine 1.015 (1.005-1.025); Urine Blood NEG (NEG); Urine Ketones NEG (NEG); Urine Protein NEG (NEG-TRACE)
== END 2021-03-03 07:02 | disposition home or self-care (01) ==
LOC: HO.LHD 07:01
PROVIDERS: Absent Provider Internal Medicine; Visit Provider Internal Medicine
DX: Z00.00 Encounter for general adult medical examination without abnormal findings (principal); D64.9 Anemia, unspecified; I11.0 Hypertensive heart disease with heart failure; I50.32 Chronic diastolic (congestive) heart failure; J44.9 Chronic obstructive pulmonary disease, unspecified; R29.6 Repeated falls; E78.00 Pure hypercholesterolemia, unspecified; F33.9 Major depressive disorder, recurrent, unspecified
CPT/HCPCS: 36415; 81003; 84443; 85025

== ENCOUNTER 2021-03-31 12:02 | Outpatient (REF) | payer MEDICARE, SELFPAY ==
[2021-03-31 10:35] LABS: Basophils Percent Auto 0.2 % (0-2); Eosinophils Percent Auto 0.5 % (0-4); Hematocrit 33.8 % (37.0-47.0); Hemoglobin 10.6 g/dl (12.0-16.0); Imm Gran Abs Auto 0.03 X10*3/uL (0.00-0.03); Imm Gran Pct Auto 0.5 % (0.0-0.4); Lymphocytes Absolute Auto 2.5 X10*3/uL (1.2-4.9); Lymphocytes Percent Auto 41.4 % (20-40); MANUAL DIFF FLAG SCAN; Mean Corpuscular HGB Conc 31.4 g/dl (31.0-35.0); Mean Corpuscular Hemoglobin 32.6 pg (27.0-33.0); Mean Platelet Volume 10.1 fL (9.4-12.3); Monocytes Absolute Auto 1.7 X10*3/uL (0.1-1.2); Monocytes Percent Auto 27.8 % (2-11); Neutrophils Absolute Auto 1.8 x10*3/uL (2.0-8.3); Neutrophils Percent Auto 29.6 % (45-73); Platelet Count 213 X10*3/uL (160-400); Red Blood Count 3.25 X10*6/uL (4.20-5.50); SCAN SMEAR FLAG 1; White Blood Count 5.9 X10*3/uL (4.8-10.8)
[2021-03-31 11:01] LABS: SLIDE REVIEW VERIFIED
== END 2021-03-31 12:03 | disposition home or self-care (01) ==
LOC: HO.LHD 12:02
PROVIDERS: Visit Provider Internal Medicine
DX: D64.9 Anemia, unspecified (principal)
CPT/HCPCS: 36415; 85025

== ENCOUNTER 2021-05-05 07:30 | Outpatient (REF) | payer MEDICARE, SELFPAY ==
[2021-05-05 12:49] LABS: Hematocrit 32.1 % (37.0-47.0); Hemoglobin 9.9 g/dl (12.0-16.0); Mean Corpuscular HGB Conc 30.8 g/dl (31.0-35.0); Mean Corpuscular Hemoglobin 32.6 pg (27.0-33.0); Mean Corpuscular Volume 105.6 fL (80.0-98.0); Mean Platelet Volume 10.9 fL (9.4-12.3); Platelet Count 224 X10*3/uL (160-400); Red Blood Count 3.04 X10*6/uL (4.20-5.50); Red Cell Distribution Width 12.4 % (11.0-16.0); White Blood Count 7.5 X10*3/uL (4.8-10.8)
== END 2021-05-05 07:31 | disposition home or self-care (01) ==
LOC: HO.LHD 07:30
PROVIDERS: Visit Provider Internal Medicine Medical Oncology
DX: D64.9 Anemia, unspecified (principal)
CPT/HCPCS: 36415; 85027

== ENCOUNTER 2021-06-02 10:22 | Outpatient (REF) | payer MEDICARE, SELFPAY ==
[2021-06-02 09:31] LABS: Eosinophils Percent Auto 0.3 % (0-4); Hematocrit 31.4 % (37.0-47.0); Hemoglobin 9.7 g/dl (12.0-16.0); Imm Gran Abs Auto 0.04 X10*3/uL (0.00-0.03); Imm Gran Pct Auto 0.5 % (0.0-0.4); Lymphocytes Absolute Auto 2.6 X10*3/uL (1.2-4.9); MANUAL DIFF FLAG SCAN; Mean Corpuscular HGB Conc 30.9 g/dl (31.0-35.0); Mean Corpuscular Hemoglobin 31.8 pg (27.0-33.0); Monocytes Absolute Auto 1.9 X10*3/uL (0.1-1.2); Monocytes Percent Auto 26.2 % (2-11); Neutrophils Absolute Auto 2.7 x10*3/uL (2.0-8.3); Platelet Count 175 X10*3/uL (160-400); Red Blood Count 3.05 X10*6/uL (4.20-5.50); Red Cell Distribution Width 13.5 % (11.0-16.0); SCAN SMEAR FLAG 1; White Blood Count 7.3 X10*3/uL (4.8-10.8)
[2021-06-02 10:03] LABS: SLIDE REVIEW VERIFIED
== END 2021-06-02 10:23 | disposition home or self-care (01) ==
LOC: HO.LHD 10:22
PROVIDERS: Visit Provider Internal Medicine
DX: D64.9 Anemia, unspecified (principal)
CPT/HCPCS: 36415; 85025

== ENCOUNTER 2021-06-30 11:16 | Outpatient (REF) | payer MEDICARE, SELFPAY ==
[2021-06-30 11:56] LABS: Eosinophils Percent Auto 0.4 % (0-4); Hemoglobin 8.6 g/dl (12.0-16.0); Imm Gran Abs Auto 0.03 X10*3/uL (0.00-0.03); Imm Gran Pct Auto 0.5 % (0.0-0.4); Lymphocytes Absolute Auto 1.8 X10*3/uL (1.2-4.9); Lymphocytes Percent Auto 32.3 % (20-40); MANUAL DIFF FLAG SCAN; Mean Corpuscular HGB Conc 30.7 g/dl (31.0-35.0); Mean Corpuscular Hemoglobin 31.3 pg (27.0-33.0); Mean Corpuscular Volume 101.8 fL (80.0-98.0); Mean Platelet Volume 11.1 fL (9.4-12.3); Monocytes Absolute Auto 1.6 X10*3/uL (0.1-1.2); Monocytes Percent Auto 27.7 % (2-11); Neutrophils Absolute Auto 2.2 x10*3/uL (2.0-8.3); Neutrophils Percent Auto 39.1 % (45-73); Platelet Count 189 X10*3/uL (160-400); Red Blood Count 2.75 X10*6/uL (4.20-5.50); Red Cell Distribution Width 13.1 % (11.0-16.0); SCAN SMEAR FLAG 1; White Blood Count 5.6 X10*3/uL (4.8-10.8)
[2021-06-30 12:21] LABS: SLIDE REVIEW VERIFIED
== END 2021-06-30 11:17 | disposition home or self-care (01) ==
LOC: HO.LHD 11:16
PROVIDERS: Visit Provider Internal Medicine
DX: D64.9 Anemia, unspecified (principal)
CPT/HCPCS: 36415; 85025

== ENCOUNTER 2021-08-04 06:04 | Outpatient (REF) | payer MEDICARE, SELFPAY | END 2021-08-04 06:05 | disposition home or self-care (01) | LOC: HO.LHD 06:04 | PROVIDERS: Visit Provider Internal Medicine | DX: Z13.89 Encounter for screening for other disorder (principal) ==

== ENCOUNTER → 2024-01-03 14:30 | Outpatient (RCR) | payer MEDICARE, SELFPAY ==
[2020-10-18 15:26] VITALS: BP 159/71; PULSE 92; RESP 14; TEMP 36.9; O2SAT 97; BMI 17.9
--- NOTE | 2020-10-18 15:32 | P.PNHO_ITS ---
Medical Summary - Medical Summary Date of Service: 10/18/20 Chief complaint: Follow-up Medical Summary: Diagnosis: Chronic macrocytic anemia History of multiple blood transfusions in 2018 and 2019. Hemoglobin 6.8 gram/dL in June 2018, 10.9 in September 2016, 7.6 in November 2019. Normal CBC in 2015. Chronic macrocytosis dating back to 2012. Low folate levels of 2.2 NG/mL in June 2018. In November folate levels normal at 18.8. Normal renal functions. CT chest/abdomen pelvis in November 2019 revealed suspicious 1 cm nodule in the right lower lobe. Interval History Interval history: Patient is here in follow-up, accompanied by her daughter today. They were advised by the PCP to follow up with me. Patient has been feeling about the same. Other than chronic fatigue she has no new complaints. Denies chest pain or shortness of breath. She is now living with her daughter because of frequent falls when she was living alone. She no longer has visiting services. She continues to have blood work once a month. No complaints such as chest pain, orthopnea PND. No leg swelling. Her appetite is about the same. No abdominal discomfort or change in bowel habits. Review of Systems - Constitutional Reports as per HPI, Reports no additional constitutional complaints PMFSH Medical History: Medical History (Last Reviewed 09/29/20 @ 12:48 by Vj Hall MD) (HFpEF) heart failure with preserved ejection fraction Anemia Chronic respiratory failure Closed left clavicular fracture COPD (chronic obstructive pulmonary disease) Dementia Depression Fibromyalgia Multiple falls Osteoarthritis Pulmonary nodule SVT (supraventricular tachycardia) Swelling of left foot Family History: Family History (Last Reviewed 09/29/20 @ 12:48 by Vj Hall MD) Father Cancer Mother CVD (cardiovascular disease) Surgical History: Surgical History (Last Reviewed 09/29/20 @ 12:48 by Vj Hall MD) History of hysterectomy Social History: Social History (Last Updated 10/18/20 @ 15:30 by Lety Lira) Alcohol History: Alcohol intake: former Alcohol History Details: Alcohol intake frequency: does not drink Tobacco History: Patient Tobacco Use Status: Former Tobacco user Tobacco use type: Cigarette Substance Use History: Use of substances other than those prescribed or required for medical reasons : No Advance Directives: Advance Directives Date on File: 05/15/09 Home Medications and Allergies Home Medications Medication Instructions Recorded Confirmed Type albuterol sulfate 90 mcg/actuation 2 puff INHALATION Q4-6H PRN 01/29/20 10/18/20 History aerosol inhaler food supplemt, lactose-reduced 1 ea PO .2-3 times daily ml 01/29/20 10/18/20 History nystatin 100,000 unit/mL oral 4 ml PO DAILY ml 01/29/20 10/18/20 History suspension omeprazole 20 mg capsule,delayed 20 mg PO BID 01/29/20 10/18/20 History release Allergies Allergy/AdvReac Type Severity Reaction Status Date / Time gabapentin [GABAPENTIN] Allergy Mild INCREASED Verified 09/29/20 12:47 BACK PAIN Exam Vital signs: Vital Signs Temp 98.4 F 10/18/20 15:26 Pulse 92 10/18/20 15:26 Resp 14 10/18/20 15:26 BP 159/71 H 10/18/20 15:26 Pulse Ox 97 10/18/20 15:26 Intake & Output 10/17/20 10/18/20 10/18/20 18:59 06:59 18:59 Other: Weight 37.7 kg [place] Weight in Grams 85162 Weight 37.7 kg Body Mass Index 17.9 - Constitutional Present: no acute distress Comments: Elderly woman, seated comfortably in chair all, frail looking but alert oriented x3. - Routine HEENT Exam Head: Present: normal inspection - Routine Respiratory Exam Absent: rhonchi, wheezes - Routine Cardiovascular Exam Cardiovascular: Present: S1, S2 Data - Labs Labs: Laboratory Tests 09/30/20 09:11 WBC 6.7 RBC 2.86 L Hgb 9.0 L Hct 28.6 L MCV 100.0 H Plt Count 222 Progress Note: A/P (1) Anemia Status: Chronic Assessment and plan: 1. This is a 85-year-old woman with macrocytic anemia, she has multiple underlying comorbidities including iron deficiency that was detected on blood work in November 2019. She is on oral iron supplementation. LDH is slightly elevated. Mae test is negative. Blood flow cytometry revealed increased monocytes with some dyspoiesis. I discussed doing a bone marrow did biopsy to evaluate for myelodysplastic syndrome another primary bone marrow disorders. Patient and her daughter have discussed this already with her other family members. They are all in agreement that the they do not want to pursue any further tests. They would like mother to be kept comfortable. They are agreeable for periodic blood transfusions if necessary. 2. Suspicious lung nodule on CT chest. Biopsy is possible with CT guidance. This is suspicious for malignancy. Patient and family are aware, they do not want to pursue any biopsy at this time. She was receiving palliative hospice care for a few months. Now that patient is living with her daughter, she was discharged from [facility] services. She is being monitored with CBC once a month, she has not required blood transfusion for several months as her hemoglobin has been above 8 gram/dL. I have advised the daughter to call me if any new issues arise. Thank you. - Time Spent With Patient 15 - 24 minutes
== END | disposition home or self-care (01) ==
LOC: HO.ONC 10-18 15:16
PROVIDERS: PCP Internal Medicine; Visit Provider Internal Medicine
DX: D53.9 Nutritional anemia, unspecified (principal); E61.1 Iron deficiency; R91.1 Solitary pulmonary nodule; Z79.899 Other long term (current) drug therapy
CPT/HCPCS: 99213